=== PATIENT | male | born 1980 ===

== ENCOUNTER 2017-01-07 17:09 | Emergency (ER) | payer OTHER ==
[~2017-01-07 17:09] MED LIST: GABAPENTIN300 MG PO; NORCO1 TA2 PO; TRAMADOL HCL50 MG PO
--- NOTE | 2017-01-07 21:48 | ED CLINICAL REPORT ---
Clinical Report - Physicians/Mid Levels [facility] [address] [place] [address] 01/07/2017 17:10 Patient: LUIGI LYNN Time Seen: 2129; initial patient contact, initial documentation, patient care assumed. Arrived- By private vehicle. Historian- patient. HISTORY OF PRESENT ILLNESS Chief Complaint: FALL. Location of injuries- head. The injury occurred yesterday. Fell and landed on a concrete surface; slipped (slipped on ice). Occurred at work. The patient complains of moderate pain. The patient sustained a blow to the head. No neck pain, loss of consciousness or seizure. Not dazed. REVIEW OF SYSTEMS No numbness, dizziness, loss of vision, chest pain or difficulty breathing. No weakness, abdominal pain, laceration or vomiting. He has had a headache but no pain on weight bearing. All systems otherwise negative, except as recorded above. PAST HISTORY See nurses notes. PROBLEMS: Tinnitus. Hematuria. Hypertension. Chest Pain of GI Origin. Gastritis. Peptic Ulcer Disease. Contusion. Fall. Flank Pain. Recent Travel. Calcium on prostrate. Gastroesophageal Reflux Disease. Anxiety Reaction. Leukocytosis. Abdominal Pain. Urinary Calculi. Renal Colic. Immunizations. --17:41 Margaret Valencia R.N. Gastroenteritis [RuleOut]. --17:41 Margaret Valencia R.N. ADDITIONAL SURGERIES: Colonoscopy. Lithotripsy. Renal Stone Manipulation. Shoulder Surgery. --17:41 Margaert Valencia R.N. SOCIAL HISTORY Heavy tobacco smoker. Occasional alcohol use. No drug use. No recent travel. Is a local resident. FAMILY HISTORY No significant family medical history. ADDITIONAL NOTES The nursing notes have been reviewed with agreement regarding the chief complaint, HPI, ROS, PMH and patient medications and allergies. PHYSICAL EXAM Vital Signs: 01/07/2017 17:36 BP: 138/104. HR: 88. RR: 18. O2 saturation: 98%. Temp: 98.4 F. Pain level now: 610. Have been reviewed as abnormal and appear to be correct. Hypertensive. Heart rate normal. Respiratory rate normal. Temperature normal. Oxygen saturation normal. Appearance: Alert. Oriented X3. No acute distress. Head: Head tender. No swelling of head. Occiput: mild tenderness of the central and middle occiput. No erythema, swelling, laceration, abrasion or ecchymosis. No puncture wound, foreign body or deformity. Eyes: Pupils equal, round and reactive to light. EOM intact. ENT: No dental injury. Pharynx normal. Neck: Painless ROM. Non-tender. CVS: Heart sounds normal. Pulses normal. Respiratory: Breath sounds normal. Chest nontender. Back: No tenderness. ROM normal. Skin: Skin intact. Skin warm and dry. Normal skin color. Normal skin turgor. Extremities: Normal inspection. Pelvis stable. Extremities atraumatic. No lower extremity edema. Neuro: Oriented X 3. No motor deficit. No sensory deficit. PROGRESS AND PROCEDURES Course of Care: 21:58 01/07/17. L&I paperwork completed. Patient counseled in person regarding the patient's stable condition and diagnosis. 21:48. Differential Diagnosis: Other possible considerations: fall, head injury, fx, contusions, lacs, abrasions, sprains. Above considerations are based on history and physical exam. Differential diagnosis was discussed with patient. Disposition: Discharged home in good and improved condition (21:48). Condition: good and stable. CLINICAL IMPRESSION Fall on same level by slipping. Single contusion to the head.No hematoma or skin abrasion. INSTRUCTIONS Warnings: HEAD INJURY PRECAUTIONS: An observer must check on the patient frequently for the next 24 hours to confirm that the patient responds as expected, is not confused, has no new weakness or numbness, and has no other problems. GENERAL WARNINGS: Return or contact your physician immediately if your condition worsens or changes unexpectedly, if not improving as expected, or if other problems arise. SPECIFICALLY, return if you develop incontinence of feces (loss of bowel control) or urine (loss of bladder control). trouble breathing, chest pain, abdominal pain. Prescription Medications: Naproxen 500 mg tablets: take 1 orally every 12 hours as needed for pain. Dispense twenty (20). No refills. Follow-up: Follow up with your doctor in about three days even if well. Call for an appointment. Summary of care provided to patient. Understanding of the discharge instructions verbalized by patient. (Electronically signed by Susy Castro A.R.N.P. 01/07/2017 22:37)
--- NOTE | 2017-01-07 21:48 | ED NURSING NOTES ---
Clinical Report - Nurses [facility] [address] [place] [address] 01/07/2017 17:10 Patient: LUIGI LYNN TRIAGE Triage time 17:36. Acuity: LEVEL 4. Chief Complaint: BACK PAIN. Alert. No acute distress. MADELINE COMA SCORE: Madeline Coma Scale: 15- eyes open spontaneously (4); best verbal response- oriented x 4 (5); best motor response- obeys commands (6). --17:43 Margaret Valencia R.N. 17:36 01/07/17. BP: 138/104. HR: 88. RR: 18. O2 saturation: 98% on room air. Temp: 98.4 F (oral). Pain level now: 05/08. --17:43 Margaret Valencia R.N. Weight: 111.1 kg stated. Height/Length: 71 inches Per Patient. BMI: 34.2. --17:41 Margaret Valencia R.N. Medications Hydrocodone-Acetaminophen Oral 7.5 mg, 3x a day. TraMADol HCl Oral (Tablet 50 mg) 2 tablets, 2x a day as needed, kidney pain (stones). --17:38 Margaret Valencia R.N. Ibuprofen Oral. --17:38 Margaret Valencia R.N. Medication/allergy information source: the patient. --17:43 Margaret Valencia R.N. Allergies No Known Drug Allergy. --17:39 Margaret Valencia R.N. History Arrived by private vehicle. Historian: patient. Accompanied by family. Primary physician (Violette). This started yesterday. ( constant). Relates the location as generalized. ( seen at clinic today and sent here for possible concussion). He has had a headache. History of recent trauma- fall (slipped on ice yesterday and hit back and head on concrete). Occurred at work ([employer]). SOCIAL HX: Heavy tobacco smoker- 1 pack per day. Occasional alcohol use. No drug use. FALL RISK ASSESSMENT: Fall risk assessment completed. No fall risk identified. FUNCTIONAL ASSESSMENT: Functional assessment: no impairments noted. LEARNING NEEDS ASSESSMENT: The learning needs assessment revealed no barriers. --17:43 Margaret Valencia R.N. PROBLEMS: Tinnitus. Hematuria. Hypertension. Chest Pain of GI Origin. Gastritis. Peptic Ulcer Disease. Contusion. Fall. Flank Pain. Recent Travel. Calcium on prostrate. Gastroesophageal Reflux Disease. Anxiety Reaction. Leukocytosis. Abdominal Pain. Urinary Calculi. Renal Colic. Immunizations. --17:41 Margaret Valencia R.N. Gastroenteritis [RuleOut]. --17:41 Margaret Valencia R.N. ADDITIONAL SURGERIES: Colonoscopy. Lithotripsy. Renal Stone Manipulation. Shoulder Surgery. --17:41 Margaret Valencia R.N. Assessment GENERAL / NEURO / PSYCH: Alert. Oriented X 4. Appears in no acute distress. Patient appears calm and cooperative. RESPIRATORY: Respirations not labored. SKIN: Skin is warm and dry. --17:43 Margaret Valencia R.N. Interventions <<STRICKEN ENTRY-- ID band on patient. To treatment room. --17:43 Margaret Valencia R.N. --END STRIKE>> Correction --17:43 Margaret Valencia R.N. ID band on patient. To waiting room. --17:44 Margaret Valencia R.N. PHYSICAL ASSESSMENT GENERAL / NEURO / PSYCH: Alert. Oriented X 4. Appears in no acute distress. ( pt reports tender area on back of head.). HEENT: Occiput: tenderness. RESPIRATORY: Respirations not labored. CVS: Capillary refill less than 2 seconds. --19:59 Nadira Elise R.N. NURSING PROGRESS NOTES Head of bed elevated. Two patient identifiers checked. Call light placed in reach. Side rails up x 1. Bed placed in lowest position. Brakes of bed on. --19:58 Nadira Elise R.N. Patient ready for evaluation- chart flagged. --19:58 Nadira Elise R.N. 19:58 01/07/17. BP: 145/95. HR: 102. RR: 17. O2 saturation: 98% on room air. Pain level now: 5/10. --19:59 Nadira Elise R.N. Patient informed about reason for wait. --21:19 Violet Carson R.N. 22:11 01/07/2017 Toradol (Ketorolac Tromethamine) IM 60 mg given. Given in the right ventral gluteus. Allergies verified and confirmed 5 rights. --22:21 Nadira Elise R.N. DISPOSITION / DISCHARGE Condition at departure: stable. No learning barriers present. Discharge instructions provided and reviewed with the patient. Reviewed medication(s) side effects, precautions, dosing and course information. Prescription(s) given to the patient. Patient verbalized understanding. Written instructions provided in Nepalese. The patient was discharged home and accompanied by docent coordinator. He left the Emergency Department ambulatory and via private vehicle. Shingle Cutter driving. --22:22 Nadira Elise R.N. 22:21 01/07/17. BP: 150/92. HR: 91. RR: 15. O2 saturation: 98% on room air. Temp: deferred. Padilla-Raya pain scale: 4/10. --22:22 Nadira Elise R.N. Departure time: 22:22. --22:22 Nadira Elise R.N. Locked/Released at 01/07/2017 22:22 by Nadira Elise R.N.
--- NOTE | 2017-01-07 21:48 | ED ORDER SUMMARY ---
..... Patient: LUIGI LYNN OrderSheet [facility] VisitID: [id number] [address] [place] [address] 36y, M Registration Date/Time: 01/07/2017 ORDER SHEET Weight: 111.1 kg (stated) Allergies: No Known Drug Allergy GENERAL ORDERS: MEDICATION ORDERS: Toradol IM 60 mg (NOW) (21:40 01/07/2017 Oanh A.R.N.P.) (Ack 22:11 RCkendell R.N.) (22:21 Yves R.N.) IV FLUIDS: ORDER SHEET NOTES: [Electronically signed by Nadira Elise R.N. (22:22 01/07/2017)] [Electronically signed by Susy CastroR.N.P. (22:37 01/07/2017)] [Electronically locked/signed by Nadira Elise R.N. (22:22 01/07/2017)]
--- NOTE | 2017-01-07 21:48 | ED NURSING NOTES ---
Clinical Report - Nurses [facility] [address] [place] [address] 01/07/2017 17:10 Patient: LUIGI LYNN TRIAGE Triage time 17:36. Acuity: LEVEL 4. Chief Complaint: BACK PAIN. Alert. No acute distress. MADELINE COMA SCORE: Madeline Coma Scale: 15- eyes open spontaneously (4); best verbal response- oriented x 4 (5); best motor response- obeys commands (6). --17:43 Margaret Valencia R.N. 17:36 01/07/17. BP: 138/104. HR: 88. RR: 18. O2 saturation: 98% on room air. Temp: 98.4 F (oral). Pain level now: 05/08. --17:43 Margaret Valencia R.N. Weight: 111.1 kg stated. Height/Length: 71 inches Per Patient. BMI: 34.2. --17:41 Margaret Valencia R.N. Medications Hydrocodone-Acetaminophen Oral 7.5 mg, 3x a day. TraMADol HCl Oral (Tablet 50 mg) 2 tablets, 2x a day as needed, kidney pain (stones). --17:38 Magraret Valencia R.N. Ibuprofen Oral. --17:38 Margaret Valencia R.N. Medication/allergy information source: the patient. --17:43 Margaret Valencia R.N. Allergies No Known Drug Allergy. --17:39 Margaret Valencia R.N. History Arrived by private vehicle. Historian: patient. Accompanied by family. Primary physician (Violette). This started yesterday. ( constant). Relates the location as generalized. ( seen at clinic today and sent here for possible concussion). He has had a headache. History of recent trauma- fall (slipped on ice yesterday and hit back and head on concrete). Occurred at work ([employer]). SOCIAL HX: Heavy tobacco smoker- 1 pack per day. Occasional alcohol use. No drug use. FALL RISK ASSESSMENT: Fall risk assessment completed. No fall risk identified. FUNCTIONAL ASSESSMENT: Functional assessment: no impairments noted. LEARNING NEEDS ASSESSMENT: The learning needs assessment revealed no barriers. --17:43 Margaret Valencia R.N. PROBLEMS: Tinnitus. Hematuria. Hypertension. Chest Pain of GI Origin. Gastritis. Peptic Ulcer Disease. Contusion. Fall. Flank Pain. Recent Travel. Calcium on prostrate. Gastroesophageal Reflux Disease. Anxiety Reaction. Leukocytosis. Abdominal Pain. Urinary Calculi. Renal Colic. Immunizations. --17:41 Margaret Valencia R.N. Gastroenteritis [RuleOut]. --17:41 Margaret Valencia R.N. ADDITIONAL SURGERIES: Colonoscopy. Lithotripsy. Renal Stone Manipulation. Shoulder Surgery. --17:41 Margaret Valencia R.N. Assessment GENERAL / NEURO / PSYCH: Alert. Oriented X 4. Appears in no acute distress. Patient appears calm and cooperative. RESPIRATORY: Respirations not labored. SKIN: Skin is warm and dry. --17:43 Margaret Valencia R.N. Interventions <<STRICKEN ENTRY-- ID band on patient. To treatment room. --17:43 Margaret Valencia R.N. --END STRIKE>> Correction --17:43 Margaret Valencia R.N. ID band on patient. To waiting room. --17:44 Margaret Valencia R.N. PHYSICAL ASSESSMENT GENERAL / NEURO / PSYCH: Alert. Oriented X 4. Appears in no acute distress. ( pt reports tender area on back of head.). HEENT: Occiput: tenderness. RESPIRATORY: Respirations not labored. CVS: Capillary refill less than 2 seconds. --19:59 Nadira Elise R.N. NURSING PROGRESS NOTES Head of bed elevated. Two patient identifiers checked. Call light placed in reach. Side rails up x 1. Bed placed in lowest position. Brakes of bed on. --19:58 Nadira Elise R.N. Patient ready for evaluation- chart flagged. --19:58 Nadira Elise R.N. 19:58 01/07/17. BP: 145/95. HR: 102. RR: 17. O2 saturation: 98% on room air. Pain level now: 5/10. --19:59 Nadira Elise R.N. Patient informed about reason for wait. --21:19 Violet Carson R.N. 22:11 01/07/2017 Toradol (Ketorolac Tromethamine) IM 60 mg given. Given in the right ventral gluteus. Allergies verified and confirmed 5 rights. --22:21 Nadira Elise R.N. DISPOSITION / DISCHARGE Condition at departure: stable. No learning barriers present. Discharge instructions provided and reviewed with the patient. Reviewed medication(s) side effects, precautions, dosing and course information. Prescription(s) given to the patient. Patient verbalized understanding. Written instructions provided in Swazi. The patient was discharged home and accompanied by electric blasting cap assembler. He left the Emergency Department ambulatory and via private vehicle. Hogshead Press Operator driving. --22:22 Nadira Elise R.N. 22:21 01/07/17. BP: 150/92. HR: 91. RR: 15. O2 saturation: 98% on room air. Temp: deferred. Padilla-Raya pain scale: 4/10. --22:22 Nadira Elise R.N. Departure time: 22:22. --22:22 Nadira Elise R.N. Locked/Released at 01/07/2017 22:22 by Nadira Elise R.N.
--- NOTE | 2017-01-07 21:48 | ED ORDER SUMMARY ---
..... Patient: LUIGI LYNN OrderSheet [facility] VisitID: [id number] [address] [place] [address] 36y, M Registration Date/Time: 01/07/2017 ORDER SHEET Weight: 111.1 kg (stated) Allergies: No Known Drug Allergy GENERAL ORDERS: MEDICATION ORDERS: Toradol IM 60 mg (NOW) (21:40 01/07/2017 Oanh A.R.N.P.) (Ack 22:11 RCkendell R.N.) (22:21 Yves R.N.) IV FLUIDS: ORDER SHEET NOTES: [Electronically signed by Nadira Elise R.N. (22:22 01/07/2017)] [Electronically signed by Susy CastroR.N.P. (22:37 01/07/2017)] [Electronically locked/signed by Nadira Elise R.N. (22:22 01/07/2017)]
--- NOTE | 2017-01-07 22:37 | ED DISCHARGE INSTRUCTIONS ---
Patient: LUIGI LYNN General Instructions [facility] VisitID: [id number] [address] [place] [address] 36y, M Registration Date/Time: 01/07/2017 Fall on same level by slipping. Single contusion to the head.No hematoma or skin abrasion. INSTRUCTIONS Warnings: HEAD INJURY PRECAUTIONS: An observer must check on the patient frequently for the next 24 hours to confirm that the patient responds as expected, is not confused, has no new weakness or numbness, and has no other problems. GENERAL WARNINGS: Return or contact your physician immediately if your condition worsens or changes unexpectedly, if not improving as expected, or if other problems arise. SPECIFICALLY, return if you develop incontinence of feces (loss of bowel control) or urine (loss of bladder control). trouble breathing, chest pain, abdominal pain. Prescription Medications: Naproxen 500 mg tablets: take 1 orally every 12 hours as needed for pain. Dispense twenty (20). No refills. Follow-up: Follow up with your doctor in about three days even if well. Call for an appointment. Summary of care provided to patient. Understanding of the discharge instructions verbalized by patient. ADDITIONAL INFORMATION Mechanical Fall You have had a fall today. It appears that the cause is mechanical. That means that you slipped, tripped or lost your balance. If your fall had been due to fainting or a seizure, further tests would be required. Home Care: Rest today and resume your normal activities when you are feeling back to normal. If you were injured during the fall, follow the advice from your doctor regarding care of your injury. You may use acetaminophen (Tylenol) or ibuprofen (Motrin, Advil) to control pain, unless another pain medicine was prescribed. [NOTE: If you have chronic liver or kidney disease or ever had a stomach ulcer or GI bleeding, talk with your doctor before using these medicines.] Fall Prevention: Was there anything that caused your fall that can be fixed, removed, or replaced? Make your home safe by keeping walkways clear of objects you may trip over. Use non-slip pads under rugs. Do not walk in poorly lit areas. Do not stand on chairs or wobbly ladders. Use caution when reaching overhead or looking upward. This position can cause a loss of balance. Be sure your shoes fit properly, have non-slip bottoms and are in good condition. Be cautious when going up and down curbs, and walking on uneven sidewalks. If your balance is poor, consider using a cane or walker. Stay as active as you can. Balance, flexibility, strength, and endurance all come from exercise. They all play a role in preventing falls. Follow Up with your doctor or as advised by our staff. Get Prompt Medical Attention if any of the following occur: Repeated mechanical falls, or unexplained falls Dizziness, fainting or seizure Severe headache Chest pain or shortness of breath Palpitations (very rapid or very slow or irregular heartbeat) Blood in vomit, stools (black or red color) Weakness of an arm or leg or one side of the face Difficulty with speech or vision Scalp Contusion [No Wake-Up] A scalp contusion is a bruise with swelling and sometimes bleeding under the skin. The swelling should start to go down within two days. Although there is no sign of a serious injury at this time, symptoms may appear later. These could be a sign of a more serious problem (bruising or bleeding in the brain). Therefore, watch for the warning signs below. Home Care: During the next 24 hours someone must stay with you to check for the signs below. It is not necessary to stay awake or be awakened during the night. If you have swelling of the face or scalp, apply an ice pack (ice cubes in a plastic bag, wrapped in a towel) for 20 minutes. Do this every 1-2 hours until the swelling starts to go down. You may use acetaminophen (Tylenol) or ibuprofen (Motrin, Advil) to control pain, unless another pain medicine was prescribed. [ NOTE : If you have chronic liver or kidney disease or ever had a stomach ulcer or GI bleeding, talk with your doctor before using these medicines.] For the next 24 hours: Do not take alcohol, sedatives or medicines that make you sleepy. Do not drive or operate machinery. Avoid strenuous activities. No lifting or straining. If you have had any symptoms of a concussion today (nausea, vomiting, dizziness, confusion, headache, memory loss or if you were knocked out), do not return to sports or any activity that could result in another head injury until all symptoms are gone and you have been cleared by your doctor. A second head injury before fully recovering from the first one can lead to serious brain injury. Follow Up with your doctor if symptoms are not improving after 24 hours, or as directed. [NOTE: Any X-rays or CT scans taken will be reviewed by a radiologist. You will be notified of any new findings that may affect your care.] Get Prompt Medical Attention if any of the following occur: Repeated vomiting Severe or worsening headache or dizziness Unusual drowsiness, or unable to awaken as usual Confusion or change in behavior or speech, memory loss, blurred vision Convulsion (seizure) Increasing scalp or face swelling Redness, warmth or pus from the swollen area Fluid drainage or bleeding from the nose or ears Fever of 100.4F(38C) or higher, or as directed by your healthcare provider Head Injury, No Wake-Up (Adult) You have had a head injury. It does not appear serious at this time. Symptoms of a more serious problem (concussion, bruising, or bleeding in the brain) may appear later. Therefore, watch for the WARNING SIGNS listed below. Home Care: Your healthcare provider will tell you whether its okay to drive. If so, you can drive yourself home. For the next day or so, be careful when driving or using heavy machinery until you are sure you have no delayed symptoms. During the next 24 hours someone must stay with you to check for the signs below. It is not necessary to stay awake or be awakened during the night. If you have swelling of the face or scalp, apply an ice pack (ice cubes in a plastic bag, wrapped in a towel) for 20 minutes. Do this every 1-2 hours until the swelling starts to go down. Do not use aspirin or ibuprofen (Motrin, Advil) after a head injury.You may use acetaminophen (Tylenol)to control pain, unless another pain medicine was prescribed. [NOTE: If you have chronic liver or kidney disease or ever had a stomach ulcer or GI bleeding, talk with your doctor before using these medicines.] For the next 24 hours: Do not take alcohol, sedatives or medicines that make you sleepy. Avoid strenuous activities. No lifting or straining. If you have had any symptoms of a concussion today (nausea, vomiting, dizziness, confusion, headache, memory loss or if you were knocked out), do not return to sports or any activity that could result in another head injury until all symptoms are gone and you have been cleared by your doctor. A second head injury before fully recovering from the first one can lead to serious brain injury. Follow Up with your doctor if symptoms are not improving after 24 hours, or as directed. [NOTE: A radiologist will review any X-rays or CT scans that were taken. We will notify you of any new findings that may affect your care.] Get Prompt Medical Attention if any of the followingWARNING SIGNS occur: Repeated vomiting Severe or worsening headache or dizziness Unusual drowsiness, or unable to awaken as usual Confusion or change in behavior or speech, memory loss, blurred vision Convulsion (seizure) Increasing scalp or face swelling Redness, warmth or pus from the swollen area Fluid drainage or bleeding from the nose or ears Naproxen Sodium Oral tablet What is this medicine? NAPROXEN (na PROX en) is a non-steroidal anti-inflammatory drug (NSAID). It is used to reduce swelling and to treat pain. This medicine may be used for dental pain, headache, or painful monthly periods. It is also used for painful joint and muscular problems such as arthritis, tendinitis, bursitis, and gout. How should I use this medicine? Take this medicine by mouth with a glass of water. Follow the directions on the prescription label. Take it with food if your stomach gets upset. Try to not lie down for at least 10 minutes after you take it. Take your medicine at regular intervals. Do not take your medicine more often than directed. Long-term, continuous use may increase the risk of heart attack or stroke. A special MedGuide will be given to you by the pharmacist with each prescription and refill. Be sure to read this information carefully each time. Talk to your special events director regarding the use of this medicine in children. Special care may be needed. What side effects may I notice from receiving this medicine? Side effects that you should report to your doctor or health child care nurse as soon as possible: black or bloody stools, blood in the urine or vomit blurred vision chest pain difficulty breathing or wheezing nausea or vomiting severe stomach pain skin rash, skin redness, blistering or peeling skin, hives, or itching slurred speech or weakness on one side of the body swelling of eyelids, throat, lips unexplained weight gain or swelling unusually weak or tired yellowing of eyes or skin Side effects that usually do not require medical attention (report to your doctor or health child care nurse if they continue or are bothersome): constipation headache heartburn What may interact with this medicine? alcohol aspirin cidofovir diuretics lithium methotrexate other drugs for inflammation like ketorolac or prednisone pemetrexed probenecid warfarin What if I miss a dose? If you miss a dose, take it as soon as you can. If it is almost time for your next dose, take only that dose. Do not take double or extra doses. Where should I keep my medicine? Keep out of the reach of children. Store at room temperature between 15 and 30 degrees C (59 and 86 degrees F). Keep container tightly closed. Throw away any unused medicine after the expiration date. What should I tell my health care provider before I take this medicine? They need to know if you have any of these conditions: asthma cigarette smoker drink more than 3 alcohol containing drinks a day heart disease or circulation problems such as heart failure or leg edema (fluid retention) high blood pressure kidney disease liver disease stomach bleeding or ulcers an unusual or allergic reaction to naproxen, aspirin, other NSAIDs, other medicines, foods, dyes, or preservatives or trying to get breast-feeding What should I watch for while using this medicine? Tell your doctor or health child care nurse if your pain does not get better. Talk to your doctor before taking another medicine for pain. Do not treat yourself. This medicine does not prevent heart attack or stroke. In fact, this medicine may increase the chance of a heart attack or stroke. The chance may increase with longer use of this medicine and in people who have heart disease. If you take aspirin to prevent heart attack or stroke, talk with your doctor or health child care nurse. Do not take other medicines that contain aspirin, ibuprofen, or naproxen with this medicine. Side effects such as stomach upset, nausea, or ulcers may be more likely to occur. Many medicines available without a prescription should not be taken with this medicine. This medicine can cause ulcers and bleeding in the stomach and intestines at any time during treatment. Do not smoke cigarettes or drink alcohol. These increase irritation to your stomach and can make it more susceptible to damage from this medicine. Ulcers and bleeding can happen without warning symptoms and can cause . You may get drowsy or dizzy. Do not drive, use machinery, or do anything that needs mental alertness until you know how this medicine affects you. Do not stand or sit up quickly, especially if you are an older patient. This reduces the risk of dizzy or fainting spells. This medicine can cause you to bleed more easily. Try to avoid damage to your teeth and gums when you brush or floss your teeth. You have been given the following additional information: Fall, Mechanical Scalp Contusion, No Wake Up HEAD INJURY, No Wake-Up (Adult) Naproxen Sodium Oral tablet (Electronically signed by Susy Castro A.R.N.P. 01/07/2017 22:37)
--- NOTE | 2017-01-07 22:38 | ED MAR SUMMARY ---
..... Medication Administration Record [facility] [address] [place] [address] Patient: LUIGI LYNN Visit ID: [id number] 36y, M Weight: 111.1 kg Height/Length: 71 in BMI: 34.2 ALLERGIES: No Known Drug Allergy Given 22:11 01/07/2017 Nadira Elise R.N. Medication Administered: TORADOL [IM] (KETOROLAC TROMETHAMINE), Dose: 60 mg IM. Medication Ordered: Toradol IM 60 mg (NOW).
--- NOTE | 2017-01-07 22:38 | ED MAR SUMMARY ---
..... Medication Administration Record [facility] [address] [place] [address] Patient: LUIGI LYNN Visit ID: [id number] 36y, M Weight: 111.1 kg Height/Length: 71 in BMI: 34.2 ALLERGIES: No Known Drug Allergy Given 22:11 01/07/2017 Nadira Elise R.N. Medication Administered: TORADOL [IM] (KETOROLAC TROMETHAMINE), Dose: 60 mg IM. Medication Ordered: Toradol IM 60 mg (NOW).
--- NOTE | 2017-01-07 22:38 | ED MED RECONCILIATION SUMMARY ---
Patient: LUIGI LYNN Medication Reconciliation Report [facility] VisitID: [id number] [address] [place] [address] 36y, M Registration Date/Time: 01/07/2017 Weight: 111.1 kg Height/Length: 71 in. BMI: 34.2 ALLERGIES: No Known Drug Allergy The patient's Home Medications are listed below: THE FOLLOWING MEDICATIONS NEED TO BE RECONCILED: Hydrocodone-Acetaminophen Oral 7.5 mg, 3x a day Ibuprofen Oral TraMADol HCl Oral (50 mg) 2 tablets, 2x a day, kidney pain (stones) The source(s) of the original Home Medication information: patient The following Medications were given to the patient in the Emergency Department: Toradol [IM] IM 60 mg, administered: 01/07/2017 10:11:00 PM The following Medications were prescribed to the patient: Naproxen 500 mg tablets: take 1 orally every 12 hours as needed for pain. Dispense twenty (20). No refills. -- Susy Castro A.R.N.P.
--- NOTE | 2017-01-07 22:38 | ED MED RECONCILIATION SUMMARY ---
Patient: LUIGI LYNN Medication Reconciliation Report [facility] VisitID: [id number] [address] [place] [address] 36y, M Registration Date/Time: 01/07/2017 Weight: 111.1 kg Height/Length: 71 in. BMI: 34.2 ALLERGIES: No Known Drug Allergy The patient's Home Medications are listed below: THE FOLLOWING MEDICATIONS NEED TO BE RECONCILED: Hydrocodone-Acetaminophen Oral 7.5 mg, 3x a day Ibuprofen Oral TraMADol HCl Oral (50 mg) 2 tablets, 2x a day, kidney pain (stones) The source(s) of the original Home Medication information: patient The following Medications were given to the patient in the Emergency Department: Toradol [IM] IM 60 mg, administered: 01/07/2017 10:11:00 PM The following Medications were prescribed to the patient: Naproxen 500 mg tablets: take 1 orally every 12 hours as needed for pain. Dispense twenty (20). No refills. -- Susy Castro A.R.N.P.
== END 2017-01-07 22:19 | disposition home or self-care (01) ==
LOC: ED SRH 17:09
DX: S00.83XA Contusion of other part of head, initial encounter (principal); W00.0XXA Fall on same level due to ice and snow, initial encounter; Y93.9 Activity, unspecified; Y99.0 Civilian activity done for income or pay; Y92.89 Other specified places as the place of occurrence of the external cause; F17.210 Nicotine dependence, cigarettes, uncomplicated

== ENCOUNTER 2017-01-26 14:17 | Emergency (ER) | payer BC, OTHER ==
--- NOTE | 2017-01-26 16:41 | DIAGNOSTIC IMAGING REPORT ---
PROCEDURE: CT ABDOMEN/PELVIS W/O CONTRAST INDICATION: FLANK PAIN TECHNIQUE: Axial CT images were obtained through the abdomen and pelvis without IV contrast. Coronal and sagittal reformations were created. COMPARISON: Abdominal CT 03/24/2016 FINDINGS: There is a 5 mm stone at the right ureteral vesicle junction. There is dilatation of the entire collecting system on the right. Clear lung bases. Normal size heart. The unenhanced appearance of the liver, gallbladder, adrenal glands, kidneys, pancreas and spleen is normal. The stomach, upper bowel loops, and mesentery appears normal. Intact anterior abdominal wall. No free fluid, or inflammation. The unenhanced appearance of the prostate gland, seminal vesicles, urinary bladder, pelvic vessels, and pelvic bowel loops is normal. Normal appendix. IMPRESSION: 1. There is a 5 mm stone at the right ureteral vesicle junction. There is dilatation of the entire collecting system down to the level of the stone. 2. Results were called Dr. Stone at 04:[address] scans at this facility use dose modulation, iterative reconstruction, and/or weight-based dosing when appropriate to reduce radiation dose to as low as reasonably achievable.
--- NOTE | 2017-01-26 17:42 | ED ORDER SUMMARY ---
..... Patient: LUIGI LYNN OrderSheet [facility] VisitID: [id number] [place] [address] 36y, M Registration Date/Time: 01/26/2017 ORDER SHEET Weight: 108.8 kg (stated) Allergies: No Known Drug Allergy GENERAL ORDERS: CBC w Diff Urgent (14:59 01/26/2017 Haja Dueñas) (Ack 15:01 Liz) (15:13 Karolyn R.N.) CMP Urgent (14:59 01/26/2017 Haja Dueñas) (Ack 15:01 Liz) (15:13 Karolyn Miller.N.) CT Abd/Pel wo Cont (Right) Urgent (15:38 01/26/2017 Haja Dueñas) (Ack 15:39 Liz) (16:14 Liz) UA-Culture if indicated Urgent (16:01 01/26/2017 Haja Dueñas) (Ack 16:02 Liz) (20:55 Sandra R.N.) MEDICATION ORDERS: Flomax PO 0.4 mg (Do not crush or chew, NOW) (17:04 01/26/2017 Haja Dueñas) (Ack 17:06 Sandra R.NClarke) (17:10 Sharonda R.N.) IV FLUIDS: Toradol IV 30 mg (NOW) (14:58 01/26/2017 Haja Dueñas) (15:14 Karolyn BustosN.) Zofran IV 4 mg (NOW) (14:59 01/26/2017 Haja Dueñas) (15:14 Karolyn R.N.) IV NS : initial bolus none -, then 1000 mL/hr for X1 (NOW) (14:59 01/26/2017 Haja Dueñas) (15:14 Karolyn BustosN.) Morphine IV 4 mg (HIGH ALERT MEDICATION, NOW) (15:37 01/26/2017 Haja Dueñas) (15:56 Sandra R.N.) Morphine IV 4 mg (HIGH ALERT MEDICATION, NOW) (17:04 01/26/2017 Haja Dueñas) (Ack 17:06 Sandra R.NClarke) (17:13 Sharonda R.NlCarke) ORDER SHEET NOTES: [Electronically signed by Sara Abraham R.N. (20:58 01/26/2017)] [Electronically signed by Elder Stone Dr. (22:46 01/26/2017)] [Electronically locked/signed by Sara Abraham R.N. (20:58 01/26/2017)]
--- NOTE | 2017-01-26 17:42 | ED ORDER SUMMARY ---
..... Patient: LUIGI LYNN OrderSheet [facility] VisitID: [id number] [place] [address] 36y, M Registration Date/Time: 01/26/2017 ORDER SHEET Weight: 108.8 kg (stated) Allergies: No Known Drug Allergy GENERAL ORDERS: CBC w Diff Urgent (14:59 01/26/2017 Haja Dueñas) (Ack 15:01 Liz) (15:13 Karolyn R.N.) CMP Urgent (14:59 01/26/2017 Haja Dueñas) (Ack 15:01 Liz) (15:13 Karolyn Miller.N.) CT Abd/Pel wo Cont (Right) Urgent (15:38 01/26/2017 Haja Dueñas) (Ack 15:39 Liz) (16:14 Liz) UA-Culture if indicated Urgent (16:01 01/26/2017 Haja Dueñas) (Ack 16:02 Liz) (20:55 Sandra R.N.) MEDICATION ORDERS: Flomax PO 0.4 mg (Do not crush or chew, NOW) (17:04 01/26/2017 Haja Dueñas) (Ack 17:06 Sandra R.NClarke) (17:10 Sharonda R.N.) IV FLUIDS: Toradol IV 30 mg (NOW) (14:58 01/26/2017 Haja Dueñas) (15:14 Karolyn BustosN.) Zofran IV 4 mg (NOW) (14:59 01/26/2017 Haja Dueñas) (15:14 Karolyn R.N.) IV NS : initial bolus none -, then 1000 mL/hr for X1 (NOW) (14:59 01/26/2017 Haja Dueñas) (15:14 Karolyn BustosN.) Morphine IV 4 mg (HIGH ALERT MEDICATION, NOW) (15:37 01/26/2017 Haja Dueñas) (15:56 Sandra R.N.) Morphine IV 4 mg (HIGH ALERT MEDICATION, NOW) (17:04 01/26/2017 Haja Dueñas) (Ack 17:06 Sandra R.NClarke) (17:13 Sharonda R.NClarke) ORDER SHEET NOTES: [Electronically signed by Sara Abraham R.N. (20:58 01/26/2017)] [Electronically signed by Elder Stone Dr. (22:46 01/26/2017)] [Electronically locked/signed by Sara Abraham R.N. (20:58 01/26/2017)]
--- NOTE | 2017-01-26 17:42 | ED CLINICAL REPORT ---
Clinical Report - Physicians/Mid Levels Formerly [facility] [address] [place] [place] [address] 01/26/2017 14:17 Patient: LUIGI LYNN Time Seen: 15:00; initial patient contact. Arrived- By private vehicle. Historian- patient. HISTORY OF PRESENT ILLNESS Chief Complaint: FLANK PAIN. At its maximum, severity described as moderate. When seen in the E.D., severity described as moderate. Modifying factors. Not worsened by anything. Not relieved by anything. It is described as sharp and cramping and it is described as located in the right flank and the right abdomen and right pelvis and radiating to the groin. The patient has had nausea and vomiting. No diarrhea. Similar symptoms previously: Several times. Recent medical care: Not recently seen/assessed. REVIEW OF SYSTEMS No difficulty with urination, pain with urination, urinary frequency or fever. He has had chills. All systems otherwise negative, except as recorded above. PAST HISTORY Hematuria. Hypertension. Chest Pain of GI Origin. Gastritis. Peptic Ulcer Disease. Contusion. Fall. Flank Pain. Gastroesophageal Reflux Disease. Anxiety Reaction. Leukocytosis. Abdominal Pain. Urinary Calculi. Renal Colic. SURGERIES: Colonoscopy. Lithotripsy. Renal Stone Manipulation. Shoulder Surgery. -. SOCIAL HISTORY Current every day smoker. No alcohol use or drug use. ADDITIONAL NOTES The nursing notes have been reviewed with agreement regarding the chief complaint, PMH and patient medications and allergies. PHYSICAL EXAM Vital Signs: 01/26/2017 14:51 BP: 153/96. HR: 84. RR: 22. O2 saturation: 98%. Temp: 97.7 F. Pain level now: 8/10. Have been reviewed. Hypertensive. Heart rate normal. Tachypneic. Temperature normal. Oxygen saturation normal. Appearance: Alert. Oriented X3. Appears to be in pain. Eyes: Eyes normal inspection. ENT: Dry mucous membranes present. CVS: Normal heart rate and rhythm. Heart sounds normal. Respiratory: No respiratory distress. Breath sounds normal. Abdomen: Soft. Moderate tenderness in the right side of the abdomen with guarding present. No rebound tenderness or Mccullough's, obturator or psoas sign present. Bowel sounds normal. Back: Moderate CVA tenderness on the right. Skin: Skin warm and dry. Normal skin color. Extremities: No lower extremity edema. Neuro: Oriented X 3. LABS, X-RAYS, AND EKG Abdominal CT: 1. There is a 5 mm stone at the right ureteral vesicle junction. There is dilatation of the entire collecting system down to the level of the stone. Study type: renal stone evaluation. Abdominal CT performed without contrast. The study was independently viewed by me, interpreted by the radiologist and discussed with the radiologist. Prior studies were not available for comparison. Laboratory Tests: CBC w Diff: (DAVID: 01/26/2017 15:10) ( MsgRcvd 01/26/2017 15:19) Final results Test Result Flag Units (Reference) WHITE BLOOD COUNT 12.7 H K/uL (4.5-11.5) RED BLOOD COUNT 5.20 M/uL (4.50-5.90) HEMOGLOBIN 15.7 gm/dL (13.5-17.5) HEMATOCRIT 46.8 % (41.0-53.0) MEAN CELL VOLUME 90 fL (80-100) MEAN CORPUSCULAR HGB 30 pg (26-34) MEAN CORPUSCULAR HGB CONC 34 g/dL (31-37) RED CELL DISTRIBUTION WIDTH 13.9 % (11.6-14.8) PLATELET COUNT 205 K/uL (150-400) NEUTROPHIL % 64.6 % (50-75) LYMPH % 25.9 % (25-40) MONO % 6.7 % (3-14) EOSINOPHIL % 2.5 % (0-4) BASOPHIL % 0.3 % (0-2) CMP: (DAVID: 01/26/2017 15:10) ( MsgRcvd 01/26/2017 15:33) Final results Test Result Flag Units (Reference) GLUCOSE 88 mg/dL (70-110) BUN 13 mg/dL (7-18) CREATININE 0.8 mg/dL (0.6-1.3) Estimated GFR >60 mL/min Estimated GFR- >60 mL/min Note: Persistent reduction over 3 months in eGFR<60 mL/min/1.73 m2 defines CKD. Patients with eGFR values>=60 mL/min/1.73 m2 may also have CKD if evidence ofpersistent proteinuria. Additional information may be foundat www.kidney.org. SODIUM 141 mmol/L (136-145) POTASSIUM 3.6 mmol/L (3.5-5.1) CHLORIDE 106 mmol/L (98-107) CARBON DIOXIDE 25 mmol/L (21-32) CALCIUM 8.5 mg/dL (8.5-10.1) TOTAL PROTEIN 7.6 g/dL (6.4-8.2) ALBUMIN 3.7 g/dL (3.3-5.0) BILIRUBIN, TOTAL 0.3 mg/dL (0.0-1.0) ALKALINE PHOSPHATASE 133 H U/L (46-116) AST (SGOT) 24 U/L (15-37) ALT (SGPT) 64 U/L (12-78) . PROGRESS AND PROCEDURES Disposition: Discharged home in good and improved condition. Condition: good. CLINICAL IMPRESSION Ureterolithiasis (single stone) in the right ureter with renal colic and hydronephrosis. No acute pyelonephritis, urinary tract infection or hematuria. INSTRUCTIONS Your Current Medications: CONTINUE TAKING THE FOLLOWING MEDICATIONS: Hydrocodone-Acetaminophen Oral : 7.5 mg 3x a day. Ibuprofen Oral. TraMADol HCl Oral : Tablet 50 mg, 2 tablets 2x a day, prn, kidney pain (stones). Prescription Medications: Hydrocodone/APAP 5mg / 325mg: take 1-2 orally every 6 hours as needed for pain. Dispense twenty-five (25). No refill. Zofran (orally disintegrating tablets) 4 mg: take 1 orally every 6 hours as needed for nausea and vomiting. Dispense ten (10). Substitution is permissible. Flomax 0.4 mg: take 1 orally every 24 hours. Dispense fifteen (15). No refills. Substitution is permissible. Follow-up: Follow up with your doctor in about two days. Call for an appointment. Screening today revealed the patient's blood pressure to be in the hypertensive range. The patient should follow up with a primary care provider for blood pressure management. (Electronically signed by Elder Stone Dr. 01/26/2017 22:46)
--- NOTE | 2017-01-26 17:42 | ED NURSING NOTES ---
Clinical Report - Nurses [place] [address] [place] [address] 01/26/2017 14:17 Patient: LUIGI LYNN TRIAGE Triage time 14:51. Acuity: LEVEL 3. Chief Complaint: ABDOMINAL PAIN, NAUSEA and VOMITING and (right flank pain). Alert. No acute distress. SEPSIS SCREEN: Sepsis Screen. Negative (no infection suspected/documented). COTY COMA SCORE: [place] Coma Scale: 15- eyes open spontaneously (4); best verbal response- oriented x 4 (5); best motor response- obeys commands (6). --14:56 Betsy Franks R.N. 14:51 01/26/17. BP: 153/96. HR: 84. RR: 22. O2 saturation: 98%. Temp: 97.7 F. Pain level now: 07/08. --14:56 Betsy Franks R.N. Weight: 108.8 kg stated. Height/Length: 71 inches Per Patient. BMI: 33.5. --14:55 Betsy Franks R.N. Medications Hydrocodone-Acetaminophen Oral 7.5 mg, 3x a day. Ibuprofen Oral. TraMADol HCl Oral (Tablet 50 mg) 2 tablets, 2x a day as needed, kidney pain (stones). --14:55 Betsy Franks R.N. Allergies No Known Drug Allergy. --14:55 Betsy Franks R.N. History Arrived by private vehicle. Historian: patient. Accompanied by family. Primary physician (Machelle Robles). This started last night. Onset. ("hit hard at 11 today"). ( Pt. states he has a history of kidney stones and he thinks he is passing some now.). Treatment LEGAL SUPPORT MANAGER: (Narco 7.5mg: last dose 1200). PAST MEDICAL HX: Immunizations: up-to-date. SOCIAL HX: Heavy tobacco smoker (cigarette)- 1 pack per day. No alcohol use or drug use. No recent travel. No known contact with a sick individual. ABUSE ASSESSMENT: Abuse assessment: The patient was asked "Do you feel safe in your home?" and "Has anyone hurt you or threatened to hurt you?". No report of abuse. SELF HARM ASSESSMENT: A self harm assessment was performed. The patient answered "no" to the question "Do you have thoughts of harming or killing yourself?" and "Have you recently had thoughts about harming or killing others?". NUTRITIONAL RISK ASSESSMENT: The nutritional risk assessment revealed no deficiencies. FUNCTIONAL ASSESSMENT: Functional assessment: no impairments noted. LEARNING NEEDS ASSESSMENT: The learning needs assessment revealed no barriers. --14:56 Betsy Franks R.N. PROBLEMS: Hematuria. Hypertension. Chest Pain of GI Origin. Gastritis. Peptic Ulcer Disease. Contusion. Fall. Flank Pain. Gastroesophageal Reflux Disease. Anxiety Reaction. Leukocytosis. Abdominal Pain. Urinary Calculi. Renal Colic. --14:55 Betsy Franks R.N. ADDITIONAL SURGERIES: Colonoscopy. Lithotripsy. Renal Stone Manipulation. Shoulder Surgery. --14:55 Betsy Franks R.N. Interventions ID band on patient. Ambulatory. --14:56 Betsy Franks R.N. PHYSICAL ASSESSMENT Ambulatory to room. GENERAL / NEURO / PSYCH: Alert. Appears in no acute distress. HEENT: Mucous membranes are pink. RESPIRATORY: Respirations not labored. CVS: Capillary refill less than 2 seconds. GI / : Abdomen soft. Abdominal tenderness in the right lower quadrant. SKIN: Skin is warm and dry. --14:56 Betsy Franks R.N. NURSING PROGRESS NOTES Head of bed elevated. Two patient identifiers checked. Call light placed in reach. Patient ready for evaluation- chart flagged. --14:57 Betsy Franks R.N. 15:09 01/26/2017 Site #1 started via IV in the left antecubital space with an 20g angiocath, with aseptic technique and good blood return; one attempt. Blood drawn: rainbow set. Labeled in the presence of the patient and sent to the lab. Saline lock flushed with 10 mL saline. --15:13 Betsy Franks R.N. 15:10 01/26/2017 Started bag #1 1000 mL IV Fluids IV NS (Saline); at 1000 mL/hr over 1 hour(s) via site #1 via IV pump. Allergies verified and confirmed 5 rights. IV patency established. IV site checked: no pain, redness, or swelling. IV flushed thoroughly pre- and post-medication administration. --15:14 Betsy Franks R.N. 15:11 01/26/2017 Toradol IVP 30 mg given over 2 minute(s) via site #1. Allergies verified and confirmed 5 rights. IV patency established. IV site checked: no pain, redness, or swelling. IV flushed thoroughly pre- and post-medication administration. --15:14 Betsy Farnks R.N. 15:14 01/26/2017 Zofran (Ondansetron HCl) IVP 4 mg given over 1 minute(s) via site #1. Allergies verified and confirmed 5 rights. IV patency established. IV site checked: no pain, redness, or swelling. IV flushed thoroughly pre- and post-medication administration. --15:14 Betsy Franks R.N. Patient ID band checked for patient name, birthdate and medical record number: patient confirmed. Instructions provided to collect clean catch urine and patient verbalized understanding. Clean catch urine collected with return of yellow-colored clear urine; sample sent to lab for urinalysis. Specimen labeled in the presence of the patient. --15:14 Betsy Franks R.N. 15:56 01/26/2017 Morphine IVP 4 mg given over 1 minute(s) via site #1. Allergies verified, confirmed 5 rights and sedative warning given to the patient. IV patency established. IV site checked: no pain, redness, or swelling. IV flushed thoroughly pre- and post-medication administration. IVP given by RN. --15:56 Sara Abraham R.N. Care transferred and report received (LINDA Meyer). --15:57 Sara Abraham R.N. ( 06/07 pain, getting better.). --15:57 Sara Abraham R.N. Patient returned from CT by stretcher with [place]. --16:14 Sara Abraham R.N. 17:10 01/26/2017 Flomax (Tamsulosin HCl) PO Capsules 0.4 mg given. --17:10 Karey Brunner R.N. 17:13 01/26/2017 Morphine IVP 4 mg given over 2 minute(s) via site #1. --17:13 Karey Brunner R.N. 17:14 01/26/2017 Morphine IVP Response: symptoms are the same. The patient feels the same. --17:14 Karey Brunner R.N. 17:14 01/26/2017 IV Fluids IV NS Discontinued: bag #1 completed. Total amount infused: 1000 mL. IV patency established. IV site checked: no pain, redness, or swelling. IV flushed thoroughly. --17:14 Karey Brunner R.N. 17:50 01/26/2017 Site #1 removed upon discharge. Catheter intact. Bandaid applied. --20:56 Sara Abraham R.N. DISPOSITION / DISCHARGE 17:50. Condition at departure: improved. No learning barriers present. Reviewed medication(s) side effects, precautions, dosing and course information. Prescription(s) given to the patient. Patient verbalized understanding. Written instructions provided in Singaporean. The patient was discharged home and accompanied by veterinary pathologist. He left the Emergency Department ambulatory and via private vehicle. Director Of Dance driving. Medication list reviewed and validated. --20:58 Sara Abraham R.N. 17:50 01/26/17. BP: 136/87. HR: 79. RR: 20. O2 saturation: 98%. Temp: deferred. Pain level now: 01/08. 16:06 01/26/17. BP: 146/74. HR: 78. RR: 20. O2 saturation: 99%. Pain level now: 06/07. 14:51 01/26/17. BP: 153/96. HR: 84. RR: 22. O2 saturation: 98%. Temp: 97.7 F. Pain level now: 07/08. --20:58 Sara Abraham R.N. Locked/Released at 01/26/2017 20:58 by Sara Abraham R.N.
--- NOTE | 2017-01-26 17:42 | ED NURSING NOTES ---
Clinical Report - Nurses [place] [place] [address] 01/26/2017 14:17 Patient: LUIGI LYNN TRIAGE Triage time 14:51. Acuity: LEVEL 3. Chief Complaint: ABDOMINAL PAIN, NAUSEA and VOMITING and (right flank pain). Alert. No acute distress. SEPSIS SCREEN: Sepsis Screen. Negative (no infection suspected/documented). COTY COMA SCORE: [place] Coma Scale: 15- eyes open spontaneously (4); best verbal response- oriented x 4 (5); best motor response- obeys commands (6). --14:56 Betsy Franks R.N. 14:51 01/26/17. BP: 153/96. HR: 84. RR: 22. O2 saturation: 98%. Temp: 97.7 F. Pain level now: 07/08. --14:56 Betsy Franks R.N. Weight: 108.8 kg stated. Height/Length: 71 inches Per Patient. BMI: 33.5. --14:55 Betsy Franks R.N. Medications Hydrocodone-Acetaminophen Oral 7.5 mg, 3x a day. Ibuprofen Oral. TraMADol HCl Oral (Tablet 50 mg) 2 tablets, 2x a day as needed, kidney pain (stones). --14:55 Betsy Franks R.N. Allergies No Known Drug Allergy. --14:55 Betsy Franks R.N. History Arrived by private vehicle. Historian: patient. Accompanied by family. Primary physician (Machelle Robles). This started last night. Onset. ("hit hard at 11 today"). ( Pt. states he has a history of kidney stones and he thinks he is passing some now.). Treatment PROJECT COORDINATOR RN: (Narco 7.5mg: last dose 1200). PAST MEDICAL HX: Immunizations: up-to-date. SOCIAL HX: Heavy tobacco smoker (cigarette)- 1 pack per day. No alcohol use or drug use. No recent travel. No known contact with a sick individual. ABUSE ASSESSMENT: Abuse assessment: The patient was asked "Do you feel safe in your home?" and "Has anyone hurt you or threatened to hurt you?". No report of abuse. SELF HARM ASSESSMENT: A self harm assessment was performed. The patient answered "no" to the question "Do you have thoughts of harming or killing yourself?" and "Have you recently had thoughts about harming or killing others?". NUTRITIONAL RISK ASSESSMENT: The nutritional risk assessment revealed no deficiencies. FUNCTIONAL ASSESSMENT: Functional assessment: no impairments noted. LEARNING NEEDS ASSESSMENT: The learning needs assessment revealed no barriers. --14:56 Betsy Franks R.N. PROBLEMS: Hematuria. Hypertension. Chest Pain of GI Origin. Gastritis. Peptic Ulcer Disease. Contusion. Fall. Flank Pain. Gastroesophageal Reflux Disease. Anxiety Reaction. Leukocytosis. Abdominal Pain. Urinary Calculi. Renal Colic. --14:55 Betsy Franks R.N. ADDITIONAL SURGERIES: Colonoscopy. Lithotripsy. Renal Stone Manipulation. Shoulder Surgery. --14:55 Betsy Franks R.N. Interventions ID band on patient. Ambulatory. --14:56 Betsy Franks R.N. PHYSICAL ASSESSMENT Ambulatory to room. GENERAL / NEURO / PSYCH: Alert. Appears in no acute distress. HEENT: Mucous membranes are pink. RESPIRATORY: Respirations not labored. CVS: Capillary refill less than 2 seconds. GI / : Abdomen soft. Abdominal tenderness in the right lower quadrant. SKIN: Skin is warm and dry. --14:56 Betsy Franks R.N. NURSING PROGRESS NOTES Head of bed elevated. Two patient identifiers checked. Call light placed in reach. Patient ready for evaluation- chart flagged. --14:57 Betsy Franks R.N. 15:09 01/26/2017 Site #1 started via IV in the left antecubital space with an 20g angiocath, with aseptic technique and good blood return; one attempt. Blood drawn: rainbow set. Labeled in the presence of the patient and sent to the lab. Saline lock flushed with 10 mL saline. --15:13 Betsy Franks R.N. 15:10 01/26/2017 Started bag #1 1000 mL IV Fluids IV NS (Saline); at 1000 mL/hr over 1 hour(s) via site #1 via IV pump. Allergies verified and confirmed 5 rights. IV patency established. IV site checked: no pain, redness, or swelling. IV flushed thoroughly pre- and post-medication administration. --15:14 Betsy Franks R.N. 15:11 01/26/2017 Toradol IVP 30 mg given over 2 minute(s) via site #1. Allergies verified and confirmed 5 rights. IV patency established. IV site checked: no pain, redness, or swelling. IV flushed thoroughly pre- and post-medication administration. --15:14 Betsy Franks R.N. 15:14 01/26/2017 Zofran (Ondansetron HCl) IVP 4 mg given over 1 minute(s) via site #1. Allergies verified and confirmed 5 rights. IV patency established. IV site checked: no pain, redness, or swelling. IV flushed thoroughly pre- and post-medication administration. --15:14 Betsy Franks R.N. Patient ID band checked for patient name, birthdate and medical record number: patient confirmed. Instructions provided to collect clean catch urine and patient verbalized understanding. Clean catch urine collected with return of yellow-colored clear urine; sample sent to lab for urinalysis. Specimen labeled in the presence of the patient. --15:14 Betsy Franks R.N. 15:56 01/26/2017 Morphine IVP 4 mg given over 1 minute(s) via site #1. Allergies verified, confirmed 5 rights and sedative warning given to the patient. IV patency established. IV site checked: no pain, redness, or swelling. IV flushed thoroughly pre- and post-medication administration. IVP given by RN. --15:56 Sara Abraham R.N. Care transferred and report received (LINDA Meyer). --15:57 Sara Abraham R.N. ( 06/07 pain, getting better.). --15:57 Sara Abraham R.N. Patient returned from CT by stretcher with [employer]. --16:14 Sara Abraham R.N. 17:10 01/26/2017 Flomax (Tamsulosin HCl) PO Capsules 0.4 mg given. --17:10 Karey Brunner R.N. 17:13 01/26/2017 Morphine IVP 4 mg given over 2 minute(s) via site #1. --17:13 Karey Brunner R.N. 17:14 01/26/2017 Morphine IVP Response: symptoms are the same. The patient feels the same. --17:14 Karey Brunner R.N. 17:14 01/26/2017 IV Fluids IV NS Discontinued: bag #1 completed. Total amount infused: 1000 mL. IV patency established. IV site checked: no pain, redness, or swelling. IV flushed thoroughly. --17:14 Karey Brunner R.N. 17:50 01/26/2017 Site #1 removed upon discharge. Catheter intact. Bandaid applied. --20:56 Sara Abraham R.N. DISPOSITION / DISCHARGE 17:50. Condition at departure: improved. No learning barriers present. Reviewed medication(s) side effects, precautions, dosing and course information. Prescription(s) given to the patient. Patient verbalized understanding. Written instructions provided in Ukrainian. The patient was discharged home and accompanied by cytology laboratory manager. He left the Emergency Department ambulatory and via private vehicle. Engineering Program Analyst driving. Medication list reviewed and validated. --20:58 Sara Abraham R.N. 17:50 01/26/17. BP: 136/87. HR: 79. RR: 20. O2 saturation: 98%. Temp: deferred. Pain level now: 01/08. 16:06 01/26/17. BP: 146/74. HR: 78. RR: 20. O2 saturation: 99%. Pain level now: 06/07. 14:51 01/26/17. BP: 153/96. HR: 84. RR: 22. O2 saturation: 98%. Temp: 97.7 F. Pain level now: 07/08. --20:58 Sara Abraham R.N. Locked/Released at 01/26/2017 20:58 by Sara Abraham R.N.
--- NOTE | 2017-01-26 22:46 | ED MAR SUMMARY ---
..... Medication Administration Record [facility] [address] [place] [place] [address] Patient: LUIGI LYNN Visit ID: [id number] 36y, M Weight: 108.8 kg Height/Length: 71 in BMI: 33.5 ALLERGIES: No Known Drug Allergy Start 15:10 01/26/2017 Betsy Franks R.N., Stop 17:14 01/26/2017 Karey Brunner R.N. Medication Administered: IV NS (SALINE), Dose: IV Fluids over 1 hour(s), Rate: 1000 mL/hr, Dispensed: 1000 mL bag, Site: #1 left AC. Medication Ordered: IV NS : initial bolus none -, then 1000 mL/hr for X1 (NOW). Given 15:11 01/26/2017 Betsy Franks R.N. Medication Administered: TORADOL [IVP], Dose: 30 mg IVP over 2 minute(s), Site: #1 left AC. Medication Ordered: Toradol IV 30 mg (NOW). Given 15:14 01/26/2017 Betsy Franks R.N. Medication Administered: ZOFRAN [IVP] (ONDANSETRON HCL), Dose: 4 mg IVP over 1 minute(s), Site: #1 left AC. Medication Ordered: Zofran IV 4 mg (NOW). Given 15:56 01/26/2017 Sara Abraham R.N. Medication Administered: MORPHINE [IVP], Dose: 4 mg IVP over 1 minute(s), Site: #1 left AC. Medication Ordered: Morphine IV 4 mg (HIGH ALERT MEDICATION, NOW). Given 17:10 01/26/2017 Karey Brunner R.N. Medication Administered: FLOMAX [PO] (TAMSULOSIN HCL), Dose: 0.4 mg Capsules PO. Medication Ordered: Flomax PO 0.4 mg (Do not crush or chew, NOW). Given 17:13 01/26/2017 Karey Brunner R.N. Medication Administered: MORPHINE [IVP], Dose: 4 mg IVP over 2 minute(s), Site: #1 left AC. Medication Ordered: Morphine IV 4 mg (HIGH ALERT MEDICATION, NOW).
--- NOTE | 2017-01-26 22:46 | ED DISCHARGE INSTRUCTIONS ---
Patient: LUIGI LYNN General Instructions [facility] VisitID: [id number] [place] [address] 36y, M Registration Date/Time: 01/26/2017 Ureterolithiasis (single stone) in the right ureter with renal colic and hydronephrosis. No acute pyelonephritis, urinary tract infection or hematuria. INSTRUCTIONS Your Current Medications: CONTINUE TAKING THE FOLLOWING MEDICATIONS: Hydrocodone-Acetaminophen Oral : 7.5 mg 3x a day. Ibuprofen Oral. TraMADol HCl Oral : Tablet 50 mg, 2 tablets 2x a day, prn, kidney pain (stones). Prescription Medications: Hydrocodone/APAP 5mg / 325mg: take 1-2 orally every 6 hours as needed for pain. Dispense twenty-five (25). No refill. Zofran (orally disintegrating tablets) 4 mg: take 1 orally every 6 hours as needed for nausea and vomiting. Dispense ten (10). Substitution is permissible. Flomax 0.4 mg: take 1 orally every 24 hours. Dispense fifteen (15). No refills. Substitution is permissible. Follow-up: Follow up with your doctor in about two days. Call for an appointment. Screening today revealed the patient's blood pressure to be in the hypertensive range. The patient should follow up with a primary care provider for blood pressure management. ADDITIONAL INFORMATION Kidney Stone (W/ Colic) The sharp cramping pain and nausea/vomiting that you have is due to a small stone which has formed in the kidney and is now passing down a narrow tube (ureter) on its way to your bladder. Once it reaches your bladder, the pain will stop. The stone may pass in your urine stream in one piece. [The size may be 1/16" to 1/4" (1-6mm)]. Or, the stone may also break up into tacho fragments which you may not even notice. Once you have had a kidney stone, you are at risk for developing another one in the future. Home Care: Drink plenty of fluids (at least 8 to 10 glasses of water a day). Most stones will pass on their own, but may take from a few hours to a few days. Sometimes the stone is too large to pass by itself and special methods will have to be used to remove the stone. Each time you urinate, do so in a jar. Pour the urine from the jar through the strainer and into the toilet. Continue doing this until 24 hours after your pain stops. By then, if there was a kidney stone, it should pass from your bladder. Some stones dissolve into sand-like particles and pass right through the strainer. In that case, you wont ever see a stone. Save any stone that you find in the strainer and bring it to your doctor for analysis. It may be possible to prevent certain types of stones from forming. Therefore, it is important to know what kind of stone you have. Try to stay as active as possible since this will help the stone pass. Do not stay in bed unless your pain prevents you from getting up. You may notice a red, pink or brown color to your urine. This is normal while passing a kidney stone. Follow Up with your doctor or return to this facility if the pain lasts more than 48 hours. Get Prompt Medical Attention if any of the following occur: Pain that is not controlled by the medicine given Repeated vomiting or unable to keep down fluids Weakness, dizziness or fainting Fever of 100.4F (38C) or higher, or as directed by your healthcare provider Passage of solid red or brown urine (can't see through it) or urine with lots of blood clots Unable to pass urine for 8 hours and increasing bladder pressure Hydrocodone Bitartrate, Acetaminophen Oral tablet What is this medicine? ACETAMINOPHEN; HYDROCODONE (a set a AMY shanel fen; david droe KOE done) is a pain reliever. It is used to treat mild to moderate pain. How should I use this medicine? Take this medicine by mouth. Swallow it with a full glass of water. Follow the directions on the prescription label. If the medicine upsets your stomach, take the medicine with food or milk. Do not take more than you are told to take. Talk to your residential sales associate regarding the use of this medicine in children. This medicine is not approved for use in children. What side effects may I notice from receiving this medicine? Side effects that you should report to your doctor or health child care nurse as soon as possible: allergic reactions like skin rash, itching or hives, swelling of the face, lips, or tongue breathing problems confusion feeling faint or lightheaded, falls stomach pain yellowing of the eyes or skin Side effects that usually do not require medical attention (report to your doctor or health child care nurse if they continue or are bothersome): nausea, vomiting stomach upset What may interact with this medicine? alcohol antihistamines isoniazid medicines for depression, anxiety, or psychotic disturbances medicines for sleep muscle relaxants naltrexone narcotic medicines (opiates) for pain phenobarbital ritonavir tramadol What if I miss a dose? If you miss a dose, take it as soon as you can. If it is almost time for your next dose, take only that dose. Do not take double or extra doses. Where should I keep my medicine? Keep out of the reach of children. This medicine can be abused. Keep your medicine in a safe place to protect it from theft. Do not share this medicine with anyone. Selling or giving away this medicine is dangerous and against the law. Store at room temperature between 15 and 30 degrees C (59 and 86 degrees F). Protect from light. Keep container tightly closed. Throw away any unused medicine after the expiration date. Discard unused medicine and used packaging carefully. Pets and children can be harmed if they find used or lost packages. What should I tell my health care provider before I take this medicine? They need to know if you have any of these conditions: brain tumor Crohn's disease, inflammatory bowel disease, or ulcerative colitis drink more than 3 alcohol-containing drinks per day drug abuse or addiction head injury heart or circulation problems kidney disease or problems going to the bathroom liver disease lung disease, asthma, or breathing problems an unusual or allergic reaction to acetaminophen, hydrocodone, other opioid analgesics, other medicines, foods, dyes, or preservatives or trying to get breast-feeding What should I watch for while using this medicine? Tell your doctor or health child care nurse if your pain does not go away, if it gets worse, or if you have new or a different type of pain. You may develop tolerance to the medicine. Tolerance means that you will need a higher dose of the medicine for pain relief. Tolerance is normal and is expected if you take the medicine for a long time. Do not suddenly stop taking your medicine because you may develop a severe reaction. Your body becomes used to the medicine. This does NOT mean you are addicted. Addiction is a behavior related to getting and using a drug for a non-medical reason. If you have pain, you have a medical reason to take pain medicine. Your doctor will tell you how much medicine to take. If your doctor wants you to stop the medicine, the dose will be slowly lowered over time to avoid any side effects. You may get drowsy or dizzy when you first start taking the medicine or change doses. Do not drive, use machinery, or do anything that may be dangerous until you know how the medicine affects you. Stand or sit up slowly. There are different types of narcotic medicines (opiates) for pain. If you take more than one type at the same time, you may have more side effects. Give your health care provider a list of all medicines you use. Your doctor will tell you how much medicine to take. Do not take more medicine than directed. Call emergency for help if you have problems breathing. The medicine will cause constipation. Try to have a bowel movement at least every 2 to 3 days. If you do not have a bowel movement for 3 days, call your doctor or health child care nurse. Too much acetaminophen can be very dangerous. Do not take Tylenol (acetaminophen) or medicines that contain acetaminophen with this medicine. Many non-prescription medicines contain acetaminophen. Always read the labels carefully. Ondansetron Oral disintegrating tablet What is this medicine? ONDANSETRON (on ABRAM se myron) is used to treat nausea and vomiting caused by chemotherapy. It is also used to prevent or treat nausea and vomiting after surgery. How should I use this medicine? These tablets are made to dissolve in the mouth. Do not try to push the tablet through the foil backing. With dry hands, peel away the foil backing and gently remove the tablet. Place the tablet in the mouth and allow it to dissolve, then swallow. While you may take these tablets with water, it is not necessary to do so. Talk to your residential sales associate regarding the use of this medicine in children. Special care may be needed. What side effects may I notice from receiving this medicine? Side effects that you should report to your doctor or health child care nurse as soon as possible: allergic reactions like skin rash, itching or hives, swelling of the face, lips, or tongue breathing problems dizziness fast or irregular heartbeat feeling faint or lightheaded, falls fever and chills swelling of the hands and feet tightness in the chest Side effects that usually do not require medical attention (report to your doctor or health child care nurse if they continue or are bothersome): constipation or diarrhea headache What may interact with this medicine? Do not take this medicine with any of the following medications: -apomorphine -cisapride -dofetilide -dronedarone -pimozide -thioridazine -ziprasidone This medicine may also interact with the following medications: -carbamazepine -phenytoin -rifampicin -tramadol -other medicines that prolong the QT interval (cause an abnormal heart rhythm) What if I miss a dose? If you miss a dose, take it as soon as you can. If it is almost time for your next dose, take only that dose. Do not take double or extra doses. Where should I keep my medicine? Keep out of the reach of children. Store between 2 and 30 degrees C (36 and 86 degrees F). Throw away any unused medicine after the expiration date. What should I tell my health care provider before I take this medicine? They need to know if you have any of these conditions: heart disease history of irregular heartbeat liver disease low levels of magnesium or potassium in the blood an unusual or allergic reaction to ondansetron, granisetron, other medicines, foods, dyes, or preservatives or trying to get breast-feeding What should I watch for while using this medicine? Check with your doctor or health child care nurse as soon as you can if you have any sign of an allergic reaction. You have been given the following additional information: Kidney Stone W/ Colic Hydrocodone Bitartrate, Acetaminophen Oral tablet Ondansetron Oral disintegrating tablet (Electronically signed by Elder Stone Dr. 01/26/2017 22:46)
--- NOTE | 2017-01-26 22:46 | ED MED RECONCILIATION SUMMARY ---
Patient: LUIGI LYNN Medication Reconciliation Report [facility] VisitID: [id number] [place] [address] 36y, M Registration Date/Time: 01/26/2017 Weight: 108.8 kg Height/Length: 71 in. BMI: 33.5 ALLERGIES: No Known Drug Allergy The patient's Home Medications are listed below: CONTINUE TAKING THE FOLLOWING MEDICATIONS: Hydrocodone-Acetaminophen Oral 7.5 mg, 3x a day Ibuprofen Oral TraMADol HCl Oral (50 mg) 2 tablets, 2x a day, kidney pain (stones) The source(s) of the original Home Medication information: Not obtained. The following Medications were given to the patient in the Emergency Department: IV NS IV Fluids bolus 0, then 1000 mL/hr, administered: 01/26/2017 3:10:00 PM Toradol [IVP] IVP 30 mg, administered: 01/26/2017 3:11:00 PM Zofran [IVP] IVP 4 mg, administered: 01/26/2017 3:14:00 PM Morphine [IVP] IVP 4 mg, administered: 01/26/2017 3:56:00 PM Flomax [PO] PO 0.4 mg, administered: 01/26/2017 5:10:00 PM Morphine [IVP] IVP 4 mg, administered: 01/26/2017 5:13:00 PM The following Medications were prescribed to the patient: Hydrocodone/APAP 5mg / 325mg: take 1-2 orally every 6 hours as needed for pain. Dispense twenty-five (25). No refill. -- Elder Stone Dr. Zofran (orally disintegrating tablets) 4 mg: take 1 orally every 6 hours as needed for nausea and vomiting. Dispense ten (10). Substitution is permissible. -- Elder Stone Dr. Flomax 0.4 mg: take 1 orally every 24 hours. Dispense fifteen (15). No refills. Substitution is permissible. -- Elder Stone Dr.
--- NOTE | 2017-01-26 22:46 | ED MAR SUMMARY ---
..... Medication Administration Record [facility] [address] [place] [address] Patient: LUIGI LYNN Visit ID: [id number] 36y, M Weight: 108.8 kg Height/Length: 71 in BMI: 33.5 ALLERGIES: No Known Drug Allergy Start 15:10 01/26/2017 Betsy Franks R.N., Stop 17:14 01/26/2017 Karey Brunner R.N. Medication Administered: IV NS (SALINE), Dose: IV Fluids over 1 hour(s), Rate: 1000 mL/hr, Dispensed: 1000 mL bag, Site: #1 left AC. Medication Ordered: IV NS : initial bolus none -, then 1000 mL/hr for X1 (NOW). Given 15:11 01/26/2017 Betsy Franks R.N. Medication Administered: TORADOL [IVP], Dose: 30 mg IVP over 2 minute(s), Site: #1 left AC. Medication Ordered: Toradol IV 30 mg (NOW). Given 15:14 01/26/2017 Betsy Franks R.N. Medication Administered: ZOFRAN [IVP] (ONDANSETRON HCL), Dose: 4 mg IVP over 1 minute(s), Site: #1 left AC. Medication Ordered: Zofran IV 4 mg (NOW). Given 15:56 01/26/2017 Sara Abraham R.N. Medication Administered: MORPHINE [IVP], Dose: 4 mg IVP over 1 minute(s), Site: #1 left AC. Medication Ordered: Morphine IV 4 mg (HIGH ALERT MEDICATION, NOW). Given 17:10 01/26/2017 Karey Brunner R.N. Medication Administered: FLOMAX [PO] (TAMSULOSIN HCL), Dose: 0.4 mg Capsules PO. Medication Ordered: Flomax PO 0.4 mg (Do not crush or chew, NOW). Given 17:13 01/26/2017 Karey Brunner R.N. Medication Administered: MORPHINE [IVP], Dose: 4 mg IVP over 2 minute(s), Site: #1 left AC. Medication Ordered: Morphine IV 4 mg (HIGH ALERT MEDICATION, NOW).
--- NOTE | 2017-01-26 22:46 | ED MED RECONCILIATION SUMMARY ---
Patient: LUIGI LYNN Medication Reconciliation Report [facility] VisitID: [id number] [place] [address] 36y, M Registration Date/Time: 01/26/2017 Weight: 108.8 kg Height/Length: 71 in. BMI: 33.5 ALLERGIES: No Known Drug Allergy The patient's Home Medications are listed below: CONTINUE TAKING THE FOLLOWING MEDICATIONS: Hydrocodone-Acetaminophen Oral 7.5 mg, 3x a day Ibuprofen Oral TraMADol HCl Oral (50 mg) 2 tablets, 2x a day, kidney pain (stones) The source(s) of the original Home Medication information: Not obtained. The following Medications were given to the patient in the Emergency Department: IV NS IV Fluids bolus 0, then 1000 mL/hr, administered: 01/26/2017 3:10:00 PM Toradol [IVP] IVP 30 mg, administered: 01/26/2017 3:11:00 PM Zofran [IVP] IVP 4 mg, administered: 01/26/2017 3:14:00 PM Morphine [IVP] IVP 4 mg, administered: 01/26/2017 3:56:00 PM Flomax [PO] PO 0.4 mg, administered: 01/26/2017 5:10:00 PM Morphine [IVP] IVP 4 mg, administered: 01/26/2017 5:13:00 PM The following Medications were prescribed to the patient: Hydrocodone/APAP 5mg / 325mg: take 1-2 orally every 6 hours as needed for pain. Dispense twenty-five (25). No refill. -- Elder Stone Dr. Zofran (orally disintegrating tablets) 4 mg: take 1 orally every 6 hours as needed for nausea and vomiting. Dispense ten (10). Substitution is permissible. -- Elder Stone Dr. Flomax 0.4 mg: take 1 orally every 24 hours. Dispense fifteen (15). No refills. Substitution is permissible. -- Elder Stone Dr.
== END 2017-01-26 17:50 | disposition home or self-care (01) ==
LOC: ED SRH 14:17
DX: N13.2 Hydronephrosis with renal and ureteral calculous obstruction (principal); Z79.891 Long term (current) use of opiate analgesic; Z79.1 Long term (current) use of non-steroidal anti-inflammatories (NSAID)
CPT/HCPCS: 90004; 90100; 90469; 95059

== ENCOUNTER 2017-02-23 12:34 | Emergency (ER) | payer BC, OTHER ==
--- NOTE | 2017-02-23 15:17 | DIAGNOSTIC IMAGING REPORT ---
PROCEDURE: CT ABDOMEN/PELVIS W/O CONTRAST INDICATION: Right lower quadrant pain. Initial encounter. TECHNIQUE: Noncontrast axial images were obtained of the entire abdomen and pelvis with sagittal and coronal reformations. COMPARISON: CT abdomen/pelvis 01/26/2017. FINDINGS: ABDOMEN: 6 mm calculus at the right UVJ with minimal anterior progression since the prior study. Mild progression of moderate right hydroureteronephrosis. There is mild right perinephric edema. Normal left kidney and ureter. Mild bibasilar scarring. Heart size is normal. Liver, gallbladder, pancreas, spleen and adrenal glands are normal. Normal abdominal aorta. PELVIS: Normal appendix. Mildly enlarged prostate. No inflammatory changes or free fluid. Bones are unremarkable. IMPRESSION: 1. 6 mm calculus at the right UVJ with minimal anterior progression. There is slight progression of moderate right hydroureteronephrosis. 2. Results discussed with SAMANTHA Palomino. All CT scans at this facility use dose modulation, iterative reconstruction, and/or weight-based dosing when appropriate to reduce radiation dose to as low as reasonably achievable.
--- NOTE | 2017-02-23 15:42 | ED CLINICAL REPORT ---
Clinical Report - Physicians/Mid Levels [facility] [address] [place] [address] 02/23/2017 12:35 Patient: LUIGI LYNN Time Seen: 13:18 Feb 23 2017. Arrived- By private vehicle. Historian- patient. HISTORY OF PRESENT ILLNESS Chief Complaint: ABDOMINAL PAIN. It is described as "pain" and it is described as located in the right abdomen. This started just prior to arrival and is still present. (she reports sudden onset of right abdominal pain, with radiation from the front to the back,with no associated nausea vomiting or diarrhea. Denies any similar symptoms to such. Does report history of nephrolithiasis, however this is different, usually his nephrolithiasis pain, starts from the posterior, radiates to the front. Denies urgency frequency. Denies any trauma. Denies any recent illness fevers or chills. Patient denies previous surgery to his abdomen. Denies any recent foreign travel, use of antibiotics, or diarrhea. Denies taking any medications prior to arrival, symptoms started at 7 AM.). REVIEW OF SYSTEMS No constipation, black stools, pain with urination, urinary frequency or fever. No cough or chills. All systems otherwise negative, except as recorded above. SOCIAL HISTORY Smoker- current status unknown. Alcohol use. No drug use. ADDITIONAL NOTES The nursing notes have been reviewed. PHYSICAL EXAM Vital Signs: 02/23/2017 12:35 BP: 142/93. HR: 86. RR: 20. O2 saturation: 100%. Temp: 97.9 F. Pain level now: 06/07. Appearance: Appears to be in pain. Patient in moderate distress. (riding on bed). Eyes: Eyes normal inspection. ENT: Ears normal. Nose normal. Neck: Normal inspection. CVS: Heart sounds normal. Respiratory: No respiratory distress. No respiratory distress. Breath sounds normal. Abdomen: Soft. Mild tenderness in the right side of the abdomen and right lower quadrant. Back: Normal inspection. No CVA tenderness. Skin: Skin warm. Normal skin color. LABS, X-RAYS, AND EKG Laboratory Tests: UA-Culture if indicated: (DAVID: 02/23/2017 12:45) ( [facility] 02/23/2017 13:27) Final results Test Result Flag Units (Reference) URINE COLOR YELLOW URINE APPEARANCE CLEAR URINE GLUCOSE TRACE (NEGATIVE) URINE BILIRUBIN NEGATIVE (NEGATIVE) URINE KETONE NEGATIVE (NEGATIVE) URINE SPECIFIC GRAVITY 1.025 (1.010-1.030) URINE PH 6.0 (5.0-8.0) URINE PROTEIN TRACE (NEGATIVE) URINE UROBILINOGEN 0.2 EU/dL (0.2-1.0) URINE NITRITE NEGATIVE (NEGATIVE) URINE BLOOD 2+ (NEGATIVE) URINE LEUK ESTERASE NEGATIVE (NEGATIVE) URINE RBC 3-5 rbc/hpf (0-1) URINE WBC 1-3 wbc/hpf (0-1) URINE EPITHELIAL CELLS RARE EPI/hpf (0-5) URINE BACTERIA TRACE (<1+) (NONE SEEN) URINE COMMENT CULT NOT INDICATED 2+ MUCOUS. RARE HYALINE CAST. 3-5 CALCIUM OXALATE CRYSTALS.URINE CULTURES ARE SET-UP BASED ON THE FOLLOWING CRITERIA:POSITIVE NITRITEPOSITIVE LEUKOCYTE ESTERASEGREATER THAN 10 WHITE BLOOD CELLSMODERATE (2+) OR GREATER BACTERIA CBC w Diff: (DVAID: 02/23/2017 12:45) ( [facility] 02/23/2017 13:08) Final results Test Result Flag Units (Reference) WHITE BLOOD COUNT 10.1 K/uL (4.5-11.5) RED BLOOD COUNT 5.27 M/uL (4.50-5.90) HEMOGLOBIN 15.9 gm/dL (13.5-17.5) HEMATOCRIT 47.5 % (41.0-53.0) MEAN CELL VOLUME 90 fL (80-100) MEAN CORPUSCULAR HGB 30 pg (26-34) MEAN CORPUSCULAR HGB CONC 34 g/dL (31-37) RED CELL DISTRIBUTION WIDTH 13.6 % (11.6-14.8) PLATELET COUNT 204 K/uL (150-400) NEUTROPHIL % 68.2 % (50-75) LYMPH % 22.0 L % (25-40) MONO % 6.9 % (3-14) EOSINOPHIL % 2.5 % (0-4) BASOPHIL % 0.4 % (0-2) CMP: (DAVID: 02/23/2017 12:45) ( MsgRcvd 02/23/2017 13:17) Final results Test Result Flag Units (Reference) GLUCOSE 102 mg/dL (70-110) BUN 15 mg/dL (7-18) CREATININE 0.9 mg/dL (0.6-1.3) Estimated GFR >60 mL/min Estimated GFR- >60 mL/min Note: Persistent reduction over 3 months in eGFR<60 mL/min/1.73 m2 defines CKD. Patients with eGFR values>=60 mL/min/1.73 m2 may also have CKD if evidence ofpersistent proteinuria. Additional information may be foundat www.[email or web address].org. SODIUM 143 mmol/L (136-145) POTASSIUM 3.9 mmol/L (3.5-5.1) CHLORIDE 107 mmol/L (98-107) CARBON DIOXIDE 28 mmol/L (21-32) CALCIUM 8.8 mg/dL (8.5-10.1) TOTAL PROTEIN 7.8 g/dL (6.4-8.2) ALBUMIN 3.9 g/dL (3.3-5.0) BILIRUBIN, TOTAL 0.4 mg/dL (0.0-1.0) ALKALINE PHOSPHATASE 123 H U/L (46-116) AST (SGOT) 35 U/L (15-37) ALT (SGPT) 68 U/L (12-78) LIPASE 53 L U/L (73-393) AMYLASE 23 L U/L (25-115) . Note - Tests: (CT: 6 mm calculus at right UVJ with minimal anterior progression, slight to moderate right hydro, Dr. Regalado). PROGRESS AND PROCEDURES Course of Care: patient was slight bacteria, slight new pain, will treat with antibiotics, patient in addition patient scheduled for an appointment in 3 days with urology. Patient will be given pain medications, Flomax as well as antiemetic medications. Patient otherwise nseptic and afebrile. No other lang signs of acute surgical abdomen. 02/23/2017 15:57 BP: 130/74. HR: 90. RR: 16. O2 saturation: 100%. Temp: 98.2 F. Pain level now: 2/10. Patient is stable. Physical exam findings are improved. Patient/family counseled. Disposition: Discharged. CLINICAL IMPRESSION Right nephrolithiasis with renal colic. INSTRUCTIONS (Follow up w/ Dr. Rivera 02/26 @ 12:00 ([facility]) UROLOGY). Prescription Medications: Zofran (orally disintegrating tablets) 4 mg: take 1 orally every 6 hours for 3 days as needed for nausea. Dispense fifteen (15). No refill. Substitution is permissible. Cipro 500 mg: take 1 tab orally every 12 hours for 10 days. No refills. Substitution is permissible. Percocet 5 mg/325 mg: take 1 tablet orally every 6 hours as needed for pain. Dispense fifteen (15). No refill. Substitution is permissible. Flomax 0.4 mg: take 1 orally every 24 hours. Dispense ten (10). No refills. Substitution is permissible. Follow-up: Follow up with a specialist 12pm appointment with UROLOGY at [facility] Wednesday. (Electronically signed by Asuncion Whitlock P.A.-C 02/23/2017 18:16)
--- NOTE | 2017-02-23 15:42 | ED CLINICAL REPORT ---
Clinical Report - Physicians/Mid Levels [facility] [address] [place] [address] 02/23/2017 12:35 Patient: LUIGI LYNN Time Seen: 13:18 Feb 23 2017. Arrived- By private vehicle. Historian- patient. HISTORY OF PRESENT ILLNESS Chief Complaint: ABDOMINAL PAIN. It is described as "pain" and it is described as located in the right abdomen. This started just prior to arrival and is still present. (she reports sudden onset of right abdominal pain, with radiation from the front to the back,with no associated nausea vomiting or diarrhea. Denies any similar symptoms to such. Does report history of nephrolithiasis, however this is different, usually his nephrolithiasis pain, starts from the posterior, radiates to the front. Denies urgency frequency. Denies any trauma. Denies any recent illness fevers or chills. Patient denies previous surgery to his abdomen. Denies any recent foreign travel, use of antibiotics, or diarrhea. Denies taking any medications prior to arrival, symptoms started at 7 AM.). REVIEW OF SYSTEMS No constipation, black stools, pain with urination, urinary frequency or fever. No cough or chills. All systems otherwise negative, except as recorded above. SOCIAL HISTORY Smoker- current status unknown. Alcohol use. No drug use. ADDITIONAL NOTES The nursing notes have been reviewed. PHYSICAL EXAM Vital Signs: 02/23/2017 12:35 BP: 142/93. HR: 86. RR: 20. O2 saturation: 100%. Temp: 97.9 F. Pain level now: 06/07. Appearance: Appears to be in pain. Patient in moderate distress. (riding on bed). Eyes: Eyes normal inspection. ENT: Ears normal. Nose normal. Neck: Normal inspection. CVS: Heart sounds normal. Respiratory: No respiratory distress. No respiratory distress. Breath sounds normal. Abdomen: Soft. Mild tenderness in the right side of the abdomen and right lower quadrant. Back: Normal inspection. No CVA tenderness. Skin: Skin warm. Normal skin color. LABS, X-RAYS, AND EKG Laboratory Tests: UA-Culture if indicated: (DAVID: 02/23/2017 12:45) ( [facility] 02/23/2017 13:27) Final results Test Result Flag Units (Reference) URINE COLOR YELLOW URINE APPEARANCE CLEAR URINE GLUCOSE TRACE (NEGATIVE) URINE BILIRUBIN NEGATIVE (NEGATIVE) URINE KETONE NEGATIVE (NEGATIVE) URINE SPECIFIC GRAVITY 1.025 (1.010-1.030) URINE PH 6.0 (5.0-8.0) URINE PROTEIN TRACE (NEGATIVE) URINE UROBILINOGEN 0.2 EU/dL (0.2-1.0) URINE NITRITE NEGATIVE (NEGATIVE) URINE BLOOD 2+ (NEGATIVE) URINE LEUK ESTERASE NEGATIVE (NEGATIVE) URINE RBC 3-5 rbc/hpf (0-1) URINE WBC 1-3 wbc/hpf (0-1) URINE EPITHELIAL CELLS RARE EPI/hpf (0-5) URINE BACTERIA TRACE (<1+) (NONE SEEN) URINE COMMENT CULT NOT INDICATED 2+ MUCOUS. RARE HYALINE CAST. 3-5 CALCIUM OXALATE CRYSTALS.URINE CULTURES ARE SET-UP BASED ON THE FOLLOWING CRITERIA:POSITIVE NITRITEPOSITIVE LEUKOCYTE ESTERASEGREATER THAN 10 WHITE BLOOD CELLSMODERATE (2+) OR GREATER BACTERIA CBC w Diff: (DAVID: 02/23/2017 12:45) ( [facility] 02/23/2017 13:08) Final results Test Result Flag Units (Reference) WHITE BLOOD COUNT 10.1 K/uL (4.5-11.5) RED BLOOD COUNT 5.27 M/uL (4.50-5.90) HEMOGLOBIN 15.9 gm/dL (13.5-17.5) HEMATOCRIT 47.5 % (41.0-53.0) MEAN CELL VOLUME 90 fL (80-100) MEAN CORPUSCULAR HGB 30 pg (26-34) MEAN CORPUSCULAR HGB CONC 34 g/dL (31-37) RED CELL DISTRIBUTION WIDTH 13.6 % (11.6-14.8) PLATELET COUNT 204 K/uL (150-400) NEUTROPHIL % 68.2 % (50-75) LYMPH % 22.0 L % (25-40) MONO % 6.9 % (3-14) EOSINOPHIL % 2.5 % (0-4) BASOPHIL % 0.4 % (0-2) CMP: (DAVID: 02/23/2017 12:45) ( MsgRcvd 02/23/2017 13:17) Final results Test Result Flag Units (Reference) GLUCOSE 102 mg/dL (70-110) BUN 15 mg/dL (7-18) CREATININE 0.9 mg/dL (0.6-1.3) Estimated GFR >60 mL/min Estimated GFR- >60 mL/min Note: Persistent reduction over 3 months in eGFR<60 mL/min/1.73 m2 defines CKD. Patients with eGFR values>=60 mL/min/1.73 m2 may also have CKD if evidence ofpersistent proteinuria. Additional information may be foundat www.[email or web address].org. SODIUM 143 mmol/L (136-145) POTASSIUM 3.9 mmol/L (3.5-5.1) CHLORIDE 107 mmol/L (98-107) CARBON DIOXIDE 28 mmol/L (21-32) CALCIUM 8.8 mg/dL (8.5-10.1) TOTAL PROTEIN 7.8 g/dL (6.4-8.2) ALBUMIN 3.9 g/dL (3.3-5.0) BILIRUBIN, TOTAL 0.4 mg/dL (0.0-1.0) ALKALINE PHOSPHATASE 123 H U/L (46-116) AST (SGOT) 35 U/L (15-37) ALT (SGPT) 68 U/L (12-78) LIPASE 53 L U/L (73-393) AMYLASE 23 L U/L (25-115) . Note - Tests: (CT: 6 mm calculus at right UVJ with minimal anterior progression, slight to moderate right hydro, Dr. Regalado). PROGRESS AND PROCEDURES Course of Care: patient was slight bacteria, slight new pain, will treat with antibiotics, patient in addition patient scheduled for an appointment in 3 days with urology. Patient will be given pain medications, Flomax as well as antiemetic medications. Patient otherwise nseptic and afebrile. No other lang signs of acute surgical abdomen. 02/23/2017 15:57 BP: 130/74. HR: 90. RR: 16. O2 saturation: 100%. Temp: 98.2 F. Pain level now: 2/10. Patient is stable. Physical exam findings are improved. Patient/family counseled. Disposition: Discharged. CLINICAL IMPRESSION Right nephrolithiasis with renal colic. INSTRUCTIONS (Follow up w/ Dr. Rivera 02/26 @ 12:00 ([facility]) UROLOGY). Prescription Medications: Zofran (orally disintegrating tablets) 4 mg: take 1 orally every 6 hours for 3 days as needed for nausea. Dispense fifteen (15). No refill. Substitution is permissible. Cipro 500 mg: take 1 tab orally every 12 hours for 10 days. No refills. Substitution is permissible. Percocet 5 mg/325 mg: take 1 tablet orally every 6 hours as needed for pain. Dispense fifteen (15). No refill. Substitution is permissible. Flomax 0.4 mg: take 1 orally every 24 hours. Dispense ten (10). No refills. Substitution is permissible. Follow-up: Follow up with a specialist 12pm appointment with UROLOGY at [facility] Wednesday. (Electronically signed by Asuncion Whitlock P.A.-C 02/23/2017 18:16)
--- NOTE | 2017-02-23 15:42 | ED NURSING NOTES ---
Clinical Report - Nurses [facility] [place] [address] 02/23/2017 12:35 Patient: LUIGI LYNN TRIAGE Acuity: LEVEL 3. Chief Complaint: ABDOMINAL PAIN, NAUSEA and DIARRHEA. Alert. No acute distress. SEPSIS SCREEN: Sepsis Screen. Negative (no infection suspected/documented). --12:42 Nicole De Los Santos R.N. 12:35 02/23/17. BP: 142/93. HR: 86. RR: 20. O2 saturation: 100% on room air. Temp: 97.9 F (oral). Pain level now: 7/10. --12:42 Nicole De Los Santos R.N. Weight: 124.2 kg stated. Height/Length: 71 inches Per Patient. BMI: 38.2. --12:38 Nicole De Los Santos R.N. Medications Hydrocodone-Acetaminophen Oral 7.5 mg, 3x a day. Ibuprofen Oral. TraMADol HCl Oral (Tablet 50 mg) 2 tablets, 2x a day as needed, kidney pain (stones). --12:37 Nicole De Los Santos R.N. Metoprolol Tartrate Oral. --12:37 Nicole De Los Santos R.N. Medication/allergy information source: the patient. --12:42 Nicole De Los Santos R.N. Allergies No Known Drug Allergy. --12:38 Nicole De Los Santos R.N. History Arrived by EMS. Historian: EMS and patient. Unaccompanied. Primary physician (Travis). This started today. Describes the quality as cramping. Relates location as in the right flank area and right lower quadrant. Notes pain level as 7/10 on arrival. Reports last BM was 1000 today. No fever. Last oral intake by patient was breakfast today (1015). Treatment [employer]: (hydrocodone at 1045 this am). SOCIAL HX: Current every day heavy tobacco smoker (cigarette)- less than 1 pack per day. Occasional alcohol use. No drug use. No recent travel. FALL RISK ASSESSMENT: Fall risk assessment completed. No fall risk identified. NUTRITIONAL RISK ASSESSMENT: The nutritional risk assessment revealed no deficiencies. FUNCTIONAL ASSESSMENT: Functional assessment: no impairments noted. LEARNING NEEDS ASSESSMENT: The learning needs assessment revealed no barriers. SKIN INTEGRITY ASSESSMENT: Skin integrity risk assessment completed. No skin integrity risk identified. --12:42 Nicole De Los Santos R.N. PROBLEMS: Ureterolithiasis. Tinnitus. Hematuria. Hypertension. Chest Pain of GI Origin. Gastritis. Peptic Ulcer Disease. Contusion. Fall. Flank Pain. Recent Travel. Calcium on prostrate. Gastroesophageal Reflux Disease. Anxiety Reaction. Leukocytosis. Abdominal Pain. Urinary Calculi. Renal Colic. Immunizations. --12:39 Nicole De Los Santos R.N. ADDITIONAL SURGERIES: Colonoscopy. Lithotripsy. Renal Stone Manipulation. Shoulder Surgery. --12:39 Nicole De Los Santos R.N. Assessment GENERAL / NEURO / PSYCH: Alert. Oriented X 4. Appears in no acute distress. Appears in pain. [place] Coma Scale: 15- eyes open spontaneously (4); best verbal response- oriented x 4 (5); best motor response- obeys commands (6). Patient appears calm and cooperative. RESPIRATORY: Respirations not labored. CVS: Capillary refill less than 2 seconds. GI / : Abdominal distention. Abdominal tenderness. SKIN: Mucous membranes are pink. Skin is warm and dry. --12:42 Nicole De Los Santos R.N. Interventions ID band on patient. To treatment room. Transported via stretcher. --12:42 Nicole De Los Santos R.N. PHYSICAL ASSESSMENT 12:43 02/23/17. To room via stretcher. GENERAL / NEURO / PSYCH: Alert. Oriented X 4. Appears in no acute distress. HEENT: Mucous membranes are pink. RESPIRATORY: Respirations not labored. CVS: Capillary refill less than 2 seconds. GI / : Abdomen soft. Abdominal tenderness in the right upper quadrant and right side of the abdomen. Guarding present. SKIN: Skin is warm and dry. --12:43 Nicole De Los Santos R.N. NURSING PROGRESS NOTES 12:43 02/23/17. The initial plan of care for this patient has been created This plan of care was discussed with the patient. Patient gowned. Reassurance given. Two patient identifiers checked. Call light placed in reach. Bed placed in lowest position. Brakes of bed on. Patient ready for evaluation- chart flagged and ED physician and PA notified. --12:43 Nicole De Los Santos R.N. 12:44 02/23/17. Checked patient name and birthdate: patient confirmed. Clean catch urine collected with return of yellow-colored clear urine; sample sent to lab for urinalysis. Specimen labeled in the presence of the patient. --12:44 Nicole De Los Santos R.N. 12:45 02/23/2017 Site #1 started via IV in the left hand with an 20g angiocath, with aseptic technique and good blood return; one attempt. Blood drawn: rainbow set. Labeled in the presence of the patient and sent to the lab. Saline lock flushed with 10 mL saline (started by Hailee, ED RN). --12:45 Nicole De Los Santos R.N. 13:22 02/23/2017 PHENERGAN (Promethazine HCl) IVP 12.5 mg given over 2 minute(s) via site #1. Allergies verified and confirmed 5 rights. IV patency established. IV site checked: no pain, redness, or swelling. IV flushed thoroughly pre- and post-medication administration. IVP given by RN. --13: Nicole De Los Santos R.N. 13:23 02/23/2017 Dilaudid (HYDROmorphone HCl PF) IVP 1 mg given over 2 minute(s) via site #1. Allergies verified, confirmed 5 rights and sedative warning given to the patient. IV patency established. IV site checked: no pain, redness, or swelling. IV flushed thoroughly pre- and post-medication administration. IVP given by RN. --13:23 Nicole De Los Santos R.N. 13:23 02/23/2017 Toradol IVP 30 mg given. via site #1. Allergies verified and confirmed 5 rights. IV patency established. IV site checked: no pain, redness, or swelling. IV flushed thoroughly pre- and post-medication administration. --13:28 David Burgess R.N. PA notified. ( pt reports difficulty urinating, "it feels like something is the tube on the bottom of my penis" pt reports that sensation starting last night. PA notified). --13:31 David Burgess R.N. 14:35 02/23/17. BP: 129/77. HR: 74. RR: 17. O2 saturation: 98%. Pain level now 6/10. --14:37 David Burgess R.N. Reassurance given. Reassessment after medication administered. He is calm and resting quietly and has had no adverse reaction. Overall patient status is improved. Call light placed in reach. Side rails up x 1. Bed placed in lowest position. Brakes of bed on. Patient waiting for lab and CT results. ( pt reports improvement in symptoms since arrival. pt does cont to have pain to right LQ that radiates to flank that he rates at a 6/10 with rest. pt in poc, texting on cell phone, aware we are waiting ct results for dispo from ED. call light on lap). --14:37 David Burgess R.N. 15:42 02/23/2017 PHENERGAN (Promethazine HCl) IVP 12.5 mg given over 2 minute(s) via site #1. Allergies verified and confirmed 5 rights. IV patency established. IV site checked: no pain, redness, or swelling. IV flushed thoroughly pre- and post-medication administration. IVP given by RN. --15:57 Checo Hogan R.N. 15:51 02/23/2017 Dilaudid (HYDROmorphone HCl PF) IVP 1 mg given over 2 minute(s) via site #1. Allergies verified, confirmed 5 rights and sedative warning given to the patient. IV patency established. IV site checked: no pain, redness, or swelling. IV flushed thoroughly pre- and post-medication administration. IVP given by RN. --15:56 Checo Hogan R.N. DISPOSITION / DISCHARGE 15:57 02/23/17. BP: 130/74. HR: 90. RR: 16. O2 saturation: 100% on room air. Temp: 98.2 F (oral). Pain level now: 10. --15:58 Checo Hogan R.N. 15:57 02/23/17. Condition at departure: improved. No learning barriers present. Discharge instructions provided and reviewed with the patient. Reviewed warnings. Reviewed medication(s). Treatments reviewed. Patient verbalized understanding. Written instructions provided in [place]. The patient was discharged by the physician nurse practitioner physicians assistant. He was discharged home. He left the Emergency Department ambulatory. --15:58 Checo Hogan R.N. 15:58 02/23/17. The goals identified in the patient's plan of care were met. FALL RISK ASSESSMENT: Fall risk assessment completed. No fall risk identified. --15:58 Checo Hogan R.N. 16:02 02/23/2017 Site #1 removed upon discharge. Catheter intact. Bandage applied. --16:03 Checo Hogan R.N. 16:03 02/23/17. ( Pt educated on how to strain urine, and collect stone when he passes it and provide to PCP. Pt will follow up with urology on 02/26 as per DC instructions). --16:03 Checo Hogan R.N. 16:03 02/23/17. Departure time: 16:03. --16:03 Checo Hogan R.N. Locked/Released at 02/23/2017 16:11 by Checo Hogan R.N.
--- NOTE | 2017-02-23 15:42 | ED ORDER SUMMARY ---
..... Patient: LUIGI LYNN OrderSheet [facility] VisitID: [id number] [place] [address] 37y, M Registration Date/Time: 02/23/2017 ORDER SHEET Weight: 124.2 kg (stated) Allergies: No Known Drug Allergy GENERAL ORDERS: UA-Culture if indicated Urgent (12:46 02/23/2017 MWinterer R.N. per protocol) (Ack 12:47 KHoerner) (13:05 MWinterer R.N.) CMP Urgent (12:46 02/23/2017 MWinterer R.N. per protocol) (Ack 12:47 KHoerner) (13:05 MWinterer R.N.) CBC w Diff Urgent (12:46 02/23/2017 MWinterer R.N. per protocol) (Ack 12:47 KHoerner) (13:05 MWinterer R.N.) Amylase Urgent (12:46 02/23/2017 MWinterer R.N. per protocol) (Ack 12:47 KHoerner) (13:05 MWinterer R.N.) Lipase Urgent (12:46 02/23/2017 MWinterer R.N. per protocol) (Ack 12:47 KHoerner) (13:05 MWinterer R.N.) GC/Chlamydia, Urine (Urine, Clean Catch) (DIRTY) Urgent (13:36 02/23/2017 EKoroleva P.A.-C) (Ack 13:39 KHoerner) (13:50 MWinterer R.N.) CT Abd/Pel wo Cont Urgent (14:03 02/23/2017 EKoroleva P.A.-C) (Ack 14:04 KHoerner) (14:25 KHoerner) MEDICATION ORDERS: Phenergan IV 12.5 mg (HIGH ALERT MEDICATION, NOW) (13:13 02/23/2017 EKoroleva P.A.-C) (Ack 13:15 MWinterer R.N.) (13:22 MWinterer R.N.) Phenergan IV 12.5 mg (HIGH ALERT MEDICATION, NOW) (15:28 02/23/2017 EKoroleva P.A.-C) (Ack 15:48 JBoardley R.N.) (15:57 JBoardley R.N.) IV FLUIDS: IV Saline Lock (12:55 02/23/2017 KPage-Kuchan R.N. per protocol) (12:55 KPage-Kuchan R.N.) Dilaudid IV 1 mg (HIGH ALERT MEDICATION, NOW) (13:13 02/23/2017 EKoroleva P.A.-C) (Ack 13:15 MWinterer R.N.) (13:23 MWinterer R.N.) Toradol IV 30 mg (NOW) (13:19 02/23/2017 EKoroleva P.A.-C) (Ack 13:22 MWinterer R.N.) (13:28 KPage-Kuchan R.N.) Toradol IV 30 mg (NOW) (14:03 02/23/2017 EKoroleva P.A.-C) (Cancelled: Other14:10 EKoroleva P.A.-C) Dilaudid IV 1 mg (HIGH ALERT MEDICATION, NOW) (15:28 02/23/2017 EKoroleva P.A.-C) (Ack 15:48 JBoardley R.N.) (15:56 JBoardley R.N.) ORDER SHEET NOTES: [Electronically signed by Checo Hogan R.N. (16:11 02/23/2017)] [Electronically signed by Asuncion WhitlockAClarke-C (18:16 02/23/2017)] [Electronically locked/signed by Checo Hogan R.N. (16:11 02/23/2017)]
--- NOTE | 2017-02-23 15:42 | ED ORDER SUMMARY ---
..... Patient: LUIGI LYNN OrderSheet [facility] VisitID: [id number] [place] [address] 37y, M Registration Date/Time: 02/23/2017 ORDER SHEET Weight: 124.2 kg (stated) Allergies: No Known Drug Allergy GENERAL ORDERS: UA-Culture if indicated Urgent (12:46 02/23/2017 MWinterer R.N. per protocol) (Ack 12:47 KHoerner) (13:05 MWinterer R.N.) CMP Urgent (12:46 02/23/2017 MWinterer R.N. per protocol) (Ack 12:47 KHoerner) (13:05 MWinterer R.N.) CBC w Diff Urgent (12:46 02/23/2017 MWinterer R.N. per protocol) (Ack 12:47 KHoerner) (13:05 MWinterer R.N.) Amylase Urgent (12:46 02/23/2017 MWinterer R.N. per protocol) (Ack 12:47 KHoerner) (13:05 MWinterer R.N.) Lipase Urgent (12:46 02/23/2017 MWinterer R.N. per protocol) (Ack 12:47 KHoerner) (13:05 MWinterer R.N.) GC/Chlamydia, Urine (Urine, Clean Catch) (DIRTY) Urgent (13:36 02/23/2017 EKoroleva P.A.-C) (Ack 13:39 KHoerner) (13:50 MWinterer R.N.) CT Abd/Pel wo Cont Urgent (14:03 02/23/2017 EKoroleva P.A.-C) (Ack 14:04 KHoerner) (14:25 KHoerner) MEDICATION ORDERS: Phenergan IV 12.5 mg (HIGH ALERT MEDICATION, NOW) (13:13 02/23/2017 EKoroleva P.A.-C) (Ack 13:15 MWinterer R.N.) (13:22 MWinterer R.N.) Phenergan IV 12.5 mg (HIGH ALERT MEDICATION, NOW) (15:28 02/23/2017 EKoroleva P.A.-C) (Ack 15:48 JBoardley R.N.) (15:57 JBoardley R.N.) IV FLUIDS: IV Saline Lock (12:55 02/23/2017 KPage-Kuchan R.N. per protocol) (12:55 KPage-Kuchan R.N.) Dilaudid IV 1 mg (HIGH ALERT MEDICATION, NOW) (13:13 02/23/2017 EKoroleva P.A.-C) (Ack 13:15 MWinterer R.N.) (13:23 MWinterer R.N.) Toradol IV 30 mg (NOW) (13:19 02/23/2017 EKoroleva P.A.-C) (Ack 13:22 MWinterer R.N.) (13:28 KPage-Kuchan R.N.) Toradol IV 30 mg (NOW) (14:03 02/23/2017 EKoroleva P.A.-C) (Cancelled: Other14:10 EKoroleva P.A.-C) Dilaudid IV 1 mg (HIGH ALERT MEDICATION, NOW) (15:28 02/23/2017 EKoroleva P.A.-C) (Ack 15:48 JBoardley R.N.) (15:56 JBoardley R.N.) ORDER SHEET NOTES: [Electronically signed by Checo Hogan R.N. (16:11 02/23/2017)] [Electronically signed by Asuncion WhitlockAClarke-C (18:16 02/23/2017)] [Electronically locked/signed by Checo Hogan R.N. (16:11 02/23/2017)]
--- NOTE | 2017-02-23 18:16 | ED MAR SUMMARY ---
..... Medication Administration Record [facility] [address] [place] [address] Patient: LUIGI LYNN Visit ID: [id number] 37y, M Weight: 124.2 kg Height/Length: 71 in BMI: 38.2 ALLERGIES: No Known Drug Allergy Given 13:02/23/2017 Nicole De Los Santos R.N. Medication Administered: PHENERGAN [IVP] (PROMETHAZINE HCL), Dose: 12.5 mg IVP over 2 minute(s), Site: #1 left hand. Medication Ordered: Phenergan IV 12.5 mg (HIGH ALERT MEDICATION, NOW). Given 13:02/23/2017 Nicole De Los Santos R.N. Medication Administered: DILAUDID [IVP] (HYDROMORPHONE HCL PF), Dose: 1 mg IVP over 2 minute(s), Site: #1 left hand. Medication Ordered: Dilaudid IV 1 mg (HIGH ALERT MEDICATION, NOW). Given 13:02/23/2017 David Burgess R.N. Medication Administered: TORADOL [IVP], Dose: 30 mg IVP, Site: #1 left hand. Medication Ordered: Toradol IV 30 mg (NOW). Given 15:42 02/23/2017 Checo Hogan R.N. Medication Administered: PHENERGAN [IVP] (PROMETHAZINE HCL), Dose: 12.5 mg IVP over 2 minute(s), Site: #1 left hand. Medication Ordered: Phenergan IV 12.5 mg (HIGH ALERT MEDICATION, NOW). Given 15:51 02/23/2017 Checo Hogan R.N. Medication Administered: DILAUDID [IVP] (HYDROMORPHONE HCL PF), Dose: 1 mg IVP over 2 minute(s), Site: #1 left hand. Medication Ordered: Dilaudid IV 1 mg (HIGH ALERT MEDICATION, NOW).
--- NOTE | 2017-02-23 18:16 | ED MED RECONCILIATION SUMMARY ---
Patient: LUIGI LYNN Medication Reconciliation Report [facility] VisitID: [id number] [place] [address] 37y, M Registration Date/Time: 02/23/2017 Weight: 124.2 kg Height/Length: 71 in. BMI: 38.2 ALLERGIES: No Known Drug Allergy The patient's Home Medications are listed below: THE FOLLOWING MEDICATIONS NEED TO BE RECONCILED: Hydrocodone-Acetaminophen Oral 7.5 mg, 3x a day Ibuprofen Oral Metoprolol Tartrate Oral TraMADol HCl Oral (50 mg) 2 tablets, 2x a day, kidney pain (stones) The source(s) of the original Home Medication information: patient The following Medications were given to the patient in the Emergency Department: PHENERGAN [IVP] IVP 12.5 mg, administered: 02/23/2017 1:22:00 PM Dilaudid [IVP] IVP 1 mg, administered: 02/23/2017 1:23:00 PM Toradol [IVP] IVP 30 mg, administered: 02/23/2017 1:23:00 PM Dilaudid [IVP] IVP 1 mg, administered: 02/23/2017 3:51:00 PM PHENERGAN [IVP] IVP 12.5 mg, administered: 02/23/2017 3:42:00 PM The following Medications were prescribed to the patient: Zofran (orally disintegrating tablets) 4 mg: take 1 orally every 6 hours for 3 days as needed for nausea. Dispense fifteen (15). No refill. Substitution is permissible. -- Asuncion Whitlock, P.A.-C Cipro 500 mg: take 1 tab orally every 12 hours for 10 days. No refills. Substitution is permissible. -- Asuncion Whitlock, P.A.-C Percocet 5 mg/325 mg: take 1 tablet orally every 6 hours as needed for pain. Dispense fifteen (15). No refill. Substitution is permissible. -- Asuncion Whitlock, P.A.-C Flomax 0.4 mg: take 1 orally every 24 hours. Dispense ten (10). No refills. Substitution is permissible. -- KoroleAsuncion jaramillo P.A.-C
--- NOTE | 2017-02-23 18:16 | ED DISCHARGE INSTRUCTIONS ---
Patient: LUIGI LNYN General Instructions [facility] VisitID: [id number] [place] [address] 37y, M Registration Date/Time: 02/23/2017 Right nephrolithiasis with renal colic. INSTRUCTIONS (Follow up w/ Dr. Rivera 02/26 @ 12:00 ([facility]) UROLOGY). Prescription Medications: Zofran (orally disintegrating tablets) 4 mg: take 1 orally every 6 hours for 3 days as needed for nausea. Dispense fifteen (15). No refill. Substitution is permissible. Cipro 500 mg: take 1 tab orally every 12 hours for 10 days. No refills. Substitution is permissible. Percocet 5 mg/325 mg: take 1 tablet orally every 6 hours as needed for pain. Dispense fifteen (15). No refill. Substitution is permissible. Flomax 0.4 mg: take 1 orally every 24 hours. Dispense ten (10). No refills. Substitution is permissible. Follow-up: Follow up with a specialist 12pm appointment with UROLOGY at [facility] Wednesday. ADDITIONAL INFORMATION Kidney Stone (W/ Colic) The sharp cramping pain and nausea/vomiting that you have is due to a small stone which has formed in the kidney and is now passing down a narrow tube (ureter) on its way to your bladder. Once it reaches your bladder, the pain will stop. The stone may pass in your urine stream in one piece. [The size may be 1/16" to 1/4" (1-6mm)]. Or, the stone may also break up into tacho fragments which you may not even notice. Once you have had a kidney stone, you are at risk for developing another one in the future. Home Care: Drink plenty of fluids (at least 8 to 10 glasses of water a day). Most stones will pass on their own, but may take from a few hours to a few days. Sometimes the stone is too large to pass by itself and special methods will have to be used to remove the stone. Each time you urinate, do so in a jar. Pour the urine from the jar through the strainer and into the toilet. Continue doing this until 24 hours after your pain stops. By then, if there was a kidney stone, it should pass from your bladder. Some stones dissolve into sand-like particles and pass right through the strainer. In that case, you wont ever see a stone. Save any stone that you find in the strainer and bring it to your doctor for analysis. It may be possible to prevent certain types of stones from forming. Therefore, it is important to know what kind of stone you have. Try to stay as active as possible since this will help the stone pass. Do not stay in bed unless your pain prevents you from getting up. You may notice a red, pink or brown color to your urine. This is normal while passing a kidney stone. Follow Up with your doctor or return to this facility if the pain lasts more than 48 hours. Get Prompt Medical Attention if any of the following occur: Pain that is not controlled by the medicine given Repeated vomiting or unable to keep down fluids Weakness, dizziness or fainting Fever of 100.4F (38C) or higher, or as directed by your healthcare provider Passage of solid red or brown urine (can't see through it) or urine with lots of blood clots Unable to pass urine for 8 hours and increasing bladder pressure Blood In The Urine Blood in the urine ("hematuria") has many possible causes. If it occurs after an injury (such as a car accident or fall), it is most often a sign of bruising to the kidney or bladder. Common medical causes of blood in the urine include urinary tract infection, kidney stone, inflammation, tumors, or certain other diseases of the kidney or bladder. Menstruation can cause blood to appear in the urine sample, although it is not coming from the urinary tract. If only a trace amount of blood is present, it will show up on the urine test, even though the urine may be yellow and not pink or red. This may occur with any of the above conditions, as well as heavy exercise or high fever. In this case, your doctor may want to repeat the urine test on another day. This will show if the blood is still present. If so, then other tests can be done to find out the cause. Home Care: If your urine does not appear bloody (pink, brown or red) then you do not need to restrict your activity in any way. If you can see blood in your urine, rest and avoid heavy exertion until your next exam. Do not use aspirin or anti-inflammatory medicine like ibuprofen (Motrin, Advil) or naproxen (Naprosyn, Aleve). These thin the blood and may increase bleeding. Follow Up with your doctor or as advised by our staff. If you were injured and had blood in your urine, you should have a repeat urine test in 1-2 days. Contact your doctor or return to this facility for this test. [NOTE: A radiologist will review any X-rays that were taken. We will notify you of any new findings that may affect your care.] Get Prompt Medical Attention if any of the following occur: Bright red blood or blood clots in the urine (if a new symptom) Weakness, dizziness or fainting New groin, abdominal or back pain Fever of 100.4F (38C) or higher, or as directed by your healthcare provider Repeated vomiting Bleeding from nose, gums or easy bruising Ondansetron Hydrochloride Oral tablet What is this medicine? ONDANSETRON (on ABRAM se myron) is used to treat nausea and vomiting caused by chemotherapy. It is also used to prevent or treat nausea and vomiting after surgery. How should I use this medicine? Take this medicine by mouth with a glass of water. Follow the directions on your prescription label. Take your doses at regular intervals. Do not take your medicine more often than directed. Talk to your steaming machine operator regarding the use of this medicine in children. Special care may be needed. What side effects may I notice from receiving this medicine? Side effects that you should report to your doctor or health skin care specialist as soon as possible: allergic reactions like skin rash, itching or hives, swelling of the face, lips or tongue breathing problems dizziness fast or irregular heartbeat feeling faint or lightheaded, falls fever and chills swelling of the hands or feet tightness in the chest Side effects that usually do not require medical attention (report to your doctor or health skin care specialist if they continue or are bothersome): constipation or diarrhea headache What may interact with this medicine? Do not take this medicine with any of the following medications: -apomorphine -cisapride -dofetilide -dronedarone -pimozide -thioridazine -ziprasidone This medicine may also interact with the following medications: -carbamazepine -phenytoin -rifampicin -tramadol -other medicines that prolong the QT interval (cause an abnormal heart rhythm) What if I miss a dose? If you miss a dose, take it as soon as you can. If it is almost time for your next dose, take only that dose. Do not take double or extra doses. Where should I keep my medicine? Keep out of the reach of children. Store between 2 and 30 degrees C (36 and 86 degrees F). Throw away any unused medicine after the expiration date. What should I tell my health care provider before I take this medicine? They need to know if you have any of these conditions: heart disease history of irregular heartbeat liver disease low levels of magnesium or potassium in the blood an unusual or allergic reaction to ondansetron, granisetron, other medicines, foods, dyes, or preservatives or trying to get breast-feeding What should I watch for while using this medicine? Check with your doctor or health skin care specialist right away if you have any sign of an allergic reaction. Ciprofloxacin Hydrochloride Oral tablet What is this medicine? CIPROFLOXACIN (sip maged FLOX a sin) is a quinolone antibiotic. It is used to treat certain kinds of bacterial infections. It will not work for colds, flu, or other viral infections. How should I use this medicine? Take this medicine by mouth with a glass of water. Follow the directions on the prescription label. Take your medicine at regular intervals. Do not take your medicine more often than directed. Take all of your medicine as directed even if you think your are better. Do not skip doses or stop your medicine early. You can take this medicine with food or on an empty stomach. It can be taken with a meal that contains dairy or calcium, but do not take it alone with a dairy product, like milk or yogurt or calcium-fortified juice. A special MedGuide will be given to you by the pharmacist with each prescription and refill. Be sure to read this information carefully each time. Talk to your steaming machine operator regarding the use of this medicine in children. Special care may be needed. What side effects may I notice from receiving this medicine? Side effects that you should report to your doctor or health skin care specialist as soon as possible: - allergic reactions like skin rash, itching or hives, swelling of the face, lips, or tongue - breathing problems - confusion, nightmares or hallucinations - feeling faint or lightheaded, falls - irregular heartbeat - joint, muscle or tendon pain or swelling - pain or trouble passing urine -persistent headache with or without blurred vision - redness, blistering, peeling or loosening of the skin, including inside the mouth - seizure - unusual pain, numbness, tingling, or weakness Side effects that usually do not require medical attention (report to your doctor or health skin care specialist if they continue or are bothersome): - diarrhea - nausea or stomach upset - white patches or sores in the mouth What may interact with this medicine? Do not take this medicine with any of the following medications: cisapride droperidol terfenadine tizanidine This medicine may also interact with the following medications: antacids caffeine cyclosporin didanosine (ddI) buffered tablets or powder medicines for diabetes medicines for inflammation like ibuprofen, naproxen methotrexate multivitamins omeprazole phenytoin probenecid sucralfate theophylline warfarin What if I miss a dose? If you miss a dose, take it as soon as you can. If it is almost time for your next dose, take only that dose. Do not take double or extra doses. Where should I keep my medicine? Keep out of the reach of children. Store at room temperature below 30 degrees C (86 degrees F). Keep container tightly closed. Throw away any unused medicine after the expiration date. What should I tell my health care provider before I take this medicine? They need to know if you have any of these conditions: -bone problems -cerebral disease -joint problems -irregular heartbeat -kidney disease -liver disease -myasthenia gravis -seizure disorder -tendon problems -an unusual or allergic reaction to ciprofloxacin, other antibiotics or medicines, foods, dyes, or preservatives - or trying to get -breast-feeding What should I watch for while using this medicine? Tell your doctor or health skin care specialist if your symptoms do not improve. Do not treat diarrhea with over the counter products. Contact your doctor if you have diarrhea that lasts more than 2 days or if it is severe and watery. You may get drowsy or dizzy. Do not drive, use machinery, or do anything that needs mental alertness until you know how this medicine affects you. Do not stand or sit up quickly, especially if you are an older patient. This reduces the risk of dizzy or fainting spells. This medicine can make you more sensitive to the sun. Keep out of the sun. If you cannot avoid being in the sun, wear protective clothing and use sunscreen. Do not use sun lamps or tanning beds/booths. Avoid antacids, aluminum, calcium, iron, magnesium, and zinc products for 6 hours before and 2 hours after taking a dose of this medicine. Oxycodone Hydrochloride, Acetaminophen Oral tablet What is this medicine? ACETAMINOPHEN; OXYCODONE (a set a AMY shanel fen; ox i KOE done) is a pain reliever. It is used to treat mild to moderate pain. How should I use this medicine? Take this medicine by mouth with a full glass of water. Follow the directions on the prescription label. Take your medicine at regular intervals. Do not take your medicine more often than directed. Talk to your steaming machine operator regarding the use of this medicine in children. Special care may be needed. Patients over 65 years old may have a stronger reaction and need a smaller dose. What side effects may I notice from receiving this medicine? Side effects that you should report to your doctor or health skin care specialist as soon as possible: allergic reactions like skin rash, itching or hives, swelling of the face, lips, or tongue breathing difficulties, wheezing confusion light headedness or fainting spells severe stomach pain yellowing of the skin or the whites of the eyes Side effects that usually do not require medical attention (report to your doctor or health skin care specialist if they continue or are bothersome): dizziness drowsiness nausea vomiting What may interact with this medicine? alcohol antihistamines barbiturates like amobarbital, butalbital, butabarbital, methohexital, pentobarbital, phenobarbital, thiopental, and secobarbital benztropine drugs for bladder problems like solifenacin, trospium, oxybutynin, tolterodine, hyoscyamine, and methscopolamine drugs for breathing problems like ipratropium and tiotropium drugs for certain stomach or intestine problems like propantheline, homatropine methylbromide, glycopyrrolate, atropine, belladonna, and dicyclomine general anesthetics like etomidate, ketamine, nitrous oxide, propofol, desflurane, enflurane, halothane, isoflurane, and sevoflurane medicines for depression, anxiety, or psychotic disturbances medicines for sleep muscle relaxants naltrexone narcotic medicines (opiates) for pain phenothiazines like perphenazine, thioridazine, chlorpromazine, mesoridazine, fluphenazine, prochlorperazine, promazine, and trifluoperazine scopolamine tramadol trihexyphenidyl What if I miss a dose? If you miss a dose, take it as soon as you can. If it is almost time for your next dose, take only that dose. Do not take double or extra doses. Where should I keep my medicine? Keep out of the reach of children. This medicine can be abused. Keep your medicine in a safe place to protect it from theft. Do not share this medicine with anyone. Selling or giving away this medicine is dangerous and against the law. Store at room temperature between 20 and 25 degrees C (68 and 77 degrees F). Keep container tightly closed. Protect from light. This medicine may cause accidental overdose and if it is taken by other adults, children, or pets. Flush any unused medicine down the toilet to reduce the chance of harm. Do not use the medicine after the expiration date. What should I tell my health care provider before I take this medicine? They need to know if you have any of these conditions: brain tumor Crohn's disease, inflammatory bowel disease, or ulcerative colitis drink more than 3 alcohol containing drinks per day drug abuse or addiction head injury heart or circulation problems kidney disease or problems going to the bathroom liver disease lung disease, asthma, or breathing problems an unusual or allergic reaction to acetaminophen, oxycodone, other opioid analgesics, other medicines, foods, dyes, or preservatives or trying to get breast-feeding What should I watch for while using this medicine? Tell your doctor or health skin care specialist if your pain does not go away, if it gets worse, or if you have new or a different type of pain. You may develop tolerance to the medicine. Tolerance means that you will need a higher dose of the medication for pain relief. Tolerance is normal and is expected if you take this medicine for a long time. Do not suddenly stop taking your medicine because you may develop a severe reaction. Your body becomes used to the medicine. This does NOT mean you are addicted. Addiction is a behavior related to getting and using a drug for a non-medical reason. If you have pain, you have a medical reason to take pain medicine. Your doctor will tell you how much medicine to take. If your doctor wants you to stop the medicine, the dose will be slowly lowered over time to avoid any side effects. You may get drowsy or dizzy. Do not drive, use machinery, or do anything that needs mental alertness until you know how this medicine affects you. Do not stand or sit up quickly, especially if you are an older patient. This reduces the risk of dizzy or fainting spells. Alcohol may interfere with the effect of this medicine. Avoid alcoholic drinks. There are different types of narcotic medicines (opiates) for pain. If you take more than one type at the same time, you may have more side effects. Give your health care provider a list of all medicines you use. Your doctor will tell you how much medicine to take. Do not take more medicine than directed. Call emergency for help if you have problems breathing. The medicine will cause constipation. Try to have a bowel movement at least every 2 to 3 days. If you do not have a bowel movement for 3 days, call your doctor or health skin care specialist. Do not take Tylenol (acetaminophen) or medicines that have acetaminophen with this medicine. Too much acetaminophen can be very dangerous. Many nonprescription medicines contain acetaminophen. Always read the labels carefully to avoid taking more acetaminophen. You have been given the following additional information: Kidney Stone W/ Colic Hematuria Ondansetron Hydrochloride Oral tablet Ciprofloxacin Hydrochloride Oral tablet Oxycodone Hydrochloride, Acetaminophen Oral tablet (Electronically signed by Asuncion Whitlock P.A.-C 02/23/2017 18:16)
--- NOTE | 2017-02-23 18:16 | ED MAR SUMMARY ---
..... Medication Administration Record Formerly [facility] [address] [place] [address] Patient: LUIGI LYNN Visit ID: [id number] 37y, M Weight: 124.2 kg Height/Length: 71 in BMI: 38.2 ALLERGIES: No Known Drug Allergy Given 13:02/23/2017 Nicole De Los Santos R.N. Medication Administered: PHENERGAN [IVP] (PROMETHAZINE HCL), Dose: 12.5 mg IVP over 2 minute(s), Site: #1 left hand. Medication Ordered: Phenergan IV 12.5 mg (HIGH ALERT MEDICATION, NOW). Given 13:02/23/2017 Nicole De Los Santos R.N. Medication Administered: DILAUDID [IVP] (HYDROMORPHONE HCL PF), Dose: 1 mg IVP over 2 minute(s), Site: #1 left hand. Medication Ordered: Dilaudid IV 1 mg (HIGH ALERT MEDICATION, NOW). Given 13:02/23/2017 David Burgess R.N. Medication Administered: TORADOL [IVP], Dose: 30 mg IVP, Site: #1 left hand. Medication Ordered: Toradol IV 30 mg (NOW). Given 15:42 02/23/2017 Checo Hogan R.N. Medication Administered: PHENERGAN [IVP] (PROMETHAZINE HCL), Dose: 12.5 mg IVP over 2 minute(s), Site: #1 left hand. Medication Ordered: Phenergan IV 12.5 mg (HIGH ALERT MEDICATION, NOW). Given 15:51 02/23/2017 Checo Hogan R.N. Medication Administered: DILAUDID [IVP] (HYDROMORPHONE HCL PF), Dose: 1 mg IVP over 2 minute(s), Site: #1 left hand. Medication Ordered: Dilaudid IV 1 mg (HIGH ALERT MEDICATION, NOW).
--- NOTE | 2017-02-23 18:16 | ED MED RECONCILIATION SUMMARY ---
Patient: LUIGI LYNN Medication Reconciliation Report [facility] VisitID: [id number] [place] [address] 37y, M Registration Date/Time: 02/23/2017 Weight: 124.2 kg Height/Length: 71 in. BMI: 38.2 ALLERGIES: No Known Drug Allergy The patient's Home Medications are listed below: THE FOLLOWING MEDICATIONS NEED TO BE RECONCILED: Hydrocodone-Acetaminophen Oral 7.5 mg, 3x a day Ibuprofen Oral Metoprolol Tartrate Oral TraMADol HCl Oral (50 mg) 2 tablets, 2x a day, kidney pain (stones) The source(s) of the original Home Medication information: patient The following Medications were given to the patient in the Emergency Department: PHENERGAN [IVP] IVP 12.5 mg, administered: 02/23/2017 1:22:00 PM Dilaudid [IVP] IVP 1 mg, administered: 02/23/2017 1:23:00 PM Toradol [IVP] IVP 30 mg, administered: 02/23/2017 1:23:00 PM Dilaudid [IVP] IVP 1 mg, administered: 02/23/2017 3:51:00 PM PHENERGAN [IVP] IVP 12.5 mg, administered: 02/23/2017 3:42:00 PM The following Medications were prescribed to the patient: Zofran (orally disintegrating tablets) 4 mg: take 1 orally every 6 hours for 3 days as needed for nausea. Dispense fifteen (15). No refill. Substitution is permissible. -- Asuncion Whitlock, P.A.-C Cipro 500 mg: take 1 tab orally every 12 hours for 10 days. No refills. Substitution is permissible. -- Asuncion Whitlock, P.A.-C Percocet 5 mg/325 mg: take 1 tablet orally every 6 hours as needed for pain. Dispense fifteen (15). No refill. Substitution is permissible. -- Asuncion Whitlock, P.A.-C Flomax 0.4 mg: take 1 orally every 24 hours. Dispense ten (10). No refills. Substitution is permissible. -- KoroleAsuncion jaramillo P.A.-C
== END 2017-02-23 16:05 | disposition home or self-care (01) ==
LOC: ED SRH 12:34
DX: N20.0 Calculus of kidney (principal); Z87.442 Personal history of urinary calculi
CPT/HCPCS: 90004; 90100; 91227; 91228; 92235; 92530; 95059

== ENCOUNTER 2017-05-28 17:56 | Emergency (ER) | payer BC, OTHER ==
--- NOTE | 2017-05-28 19:00 | DIAGNOSTIC IMAGING REPORT ---
PROCEDURE: XR KNEE 4 VIEWS - RIGHT INDICATION: TRAUMA/INJURY TECHNIQUE: Four views of the right knee. COMPARISON: None. FINDINGS: Normal mineralization. No fractures. Normal osseous alignment. A smooth, healed deformity of prior proximal fibular fracture. No joint effusion. No suspicious soft-tissue calcification or radiodense foreign bodies. IMPRESSION: 1. Intact right knee. 2. Healed, remote proximal fibular fracture.
--- NOTE | 2017-05-28 19:00 | ED ORDER SUMMARY ---
..... Patient: LUIGI LYNN OrderSheet [facility] VisitID: [id number] [place] [address] 37y, M Registration Date/Time: 05/28/2017 ORDER SHEET Weight: 115.6 kg (stated) Allergies: No Known Drug Allergy GENERAL ORDERS: Knee 4V Right Urgent (18:32 05/28/2017 Kishor BARRETO) (Ack 18:41 PWeiler ER Tech1) (19:00 ASchmuck) Knee Immobilizer (18:57 05/28/2017 Kishor BARRETO) (Ack 19:06 PWeiler ER Tech1) (19:09 ASchmuck) Crutches (18:57 05/28/2017 Kishor BARRETO) (Ack 19:06 PWeiler ER Tech1) (19:09 ASchmuck) MEDICATION ORDERS: IV FLUIDS: ORDER SHEET NOTES: [Electronically signed by Roberta Bowman (19:12 05/28/2017)] [Electronically signed by Isidoro Ho MD (16:36 05/29/2017)] [Electronically locked/signed by Roberta Bowman (19:12 05/28/2017)]
--- NOTE | 2017-05-28 19:00 | ED NURSING NOTES ---
Clinical Report - Nurses [place] [address] [place] [address] 05/28/2017 17:57 Patient: LUIGI LYNN TRIAGE Triage time 18:May 28 2017. Acuity: LEVEL 4. Chief Complaint: INJURY TO RIGHT KNEE. 18:07 05/28/17. Alert. No acute distress. SEPSIS SCREEN: Sepsis Screen. Negative (no infection suspected/documented). COTY COMA SCORE: [place] Coma Scale: 15- eyes open spontaneously (4); best verbal response- oriented x 4 (5); best motor response- obeys commands (6). --18:07 Roberta Bowman 18:05/28/17. BP: 153/97. HR: 97. RR: 17. O2 saturation: 98%. Temp: 98.2 F. Pain level now 7/10. --18:07 Roberta Bowman. Weight: 115.6 kg stated. Height/Length: 71 inches Per Patient. BMI: 35.6. --18:06 Roberta Bowman. Medications Hydrocodone-Acetaminophen Oral 7.5 mg, 3x a day. Ibuprofen Oral. TraMADol HCl Oral (Tablet 50 mg) 2 tablets, 2x a day as needed, kidney pain (stones). --18:06 Roberta Bowman Methocarbamol Oral. --18:06 Roberta Bowman. Medication/allergy information source: the patient. --18:07 Roberta Bowman. Allergies No Known Drug Allergy. --18:06 Roberta Bowman. History Arrived by private vehicle. Historian: patient. Accompanied by family. Primary physician (Travis). This occurred (One month ago, but today got worse.). Occurred at home. ( Pt reports that he hurt his knee about a month ago slipping off of a step. Last night he was standing and his knee gave out. Has an MRI scheduled on Wednesday. States that he just "couldn't take it anymore."). He has had trouble walking. No numbness, tingling, neck pain or back pain. Treatment DAY CARE DIRECTOR: Applied ice. ([place]). PAST MEDICAL HX: Tetanus status: up-to-date. Immunizations: up-to-date. SOCIAL HX: Heavy tobacco smoker (cigarette)- less than 1 pack per day. No alcohol use or drug use. FALL RISK ASSESSMENT: Fall risk assessment completed. No fall risk identified. NUTRITIONAL RISK ASSESSMENT: The nutritional risk assessment revealed no deficiencies. FUNCTIONAL ASSESSMENT: Functional assessment: no impairments noted. LEARNING NEEDS ASSESSMENT: The learning needs assessment revealed no barriers. SKIN INTEGRITY ASSESSMENT: Skin integrity risk assessment completed. No skin integrity risk identified. --18:07 Roberta Bowman. PROBLEMS: Nephrolithiasis. Ureterolithiasis. Tinnitus. Hematuria. Hypertension. Chest Pain of GI Origin. Gastritis. Peptic Ulcer Disease. Contusion. Fall. Flank Pain. Recent Travel. Calcium on prostrate. Gastroesophageal Reflux Disease. Anxiety Reaction. Leukocytosis. Abdominal Pain. Urinary Calculi. Renal Colic. Immunizations. --18:06 Roberta Bowman. ADDITIONAL SURGERIES: Colonoscopy. Lithotripsy. Renal Stone Manipulation. Shoulder Surgery. --18:06 Roberta Bowman. Assessment The patient states feels the same. --18:07 Roberta Bowman. Interventions ID band on patient. --18:07 Roberta Bowman. PHYSICAL ASSESSMENT 18:05/28/17. Ambulatory to room. Patient gowned. GENERAL / NEURO / PSYCH: Oriented X 4. Alert. Appears in no acute distress. EXTREMITIES: Limited ROM present. Capillary refill is less than 2 seconds in the extremities. Extremity pulses are within normal limits. Limping gait. Neuro-vascular status intact to the extremity. Right knee: tenderness. SKIN: Skin intact. Skin is warm and dry. --18:08 Roberta Bowman. NURSING PROGRESS NOTES 18:05/28/17. The plan of care for this patient has been created. Cold pack applied. Extremity elevated. Neuro-vascular extremity check. Reassurance given. Two patient identifiers checked. Call light placed in reach. Side rails up x 1. Bed placed in lowest position. Brakes of bed on. Patient ready for evaluation- chart flagged and ED physician and RIGHT OF WAY SUPERVISOR notified. --18:08 Roberta Bowman. DISPOSITION / DISCHARGE 19:10 05/28/17. Departure time: 19:May 28 2017. Condition at departure: improved. The goals identified in the patient's plan of care were met. No learning barriers present. Discharge instructions provided and reviewed with the patient. Reviewed warnings (Patient verbalized awareness of warning s/sx listed in dc paperwork.). Treatments reviewed. Reviewed referral to a primary care physician for followup. Patient verbalized understanding. Written instructions provided in [place]. The patient was discharged by the physician. He was discharged home and unaccompanied at time of discharge. He left the Emergency Department on crutches and via private vehicle. Patient driving. FALL RISK ASSESSMENT: Fall risk assessment completed. No fall risk identified. --19:10 Roberta Bowman 19:09 05/28/17. BP: 148/100. HR: 92. RR: 17. O2 saturation: 97% on room air. Temp: 98.4 F (oral). Pain level now: 07/08. --19:10 Roberta Bowman. Locked/Released at 05/28/2017 19:12 by Roberta Bowman,
--- NOTE | 2017-05-28 19:00 | ED NURSING NOTES ---
Clinical Report - Nurses [place] [address] [place] [address] 05/28/2017 17:57 Patient: LUIGI LYNN TRIAGE Triage time 18:May 28 2017. Acuity: LEVEL 4. Chief Complaint: INJURY TO RIGHT KNEE. 18:07 05/28/17. Alert. No acute distress. SEPSIS SCREEN: Sepsis Screen. Negative (no infection suspected/documented). COTY COMA SCORE: [place] Coma Scale: 15- eyes open spontaneously (4); best verbal response- oriented x 4 (5); best motor response- obeys commands (6). --18:07 Roberta Bowman 18:05/28/17. BP: 153/97. HR: 97. RR: 17. O2 saturation: 98%. Temp: 98.2 F. Pain level now 7/10. --18:07 Roberta Bowman. Weight: 115.6 kg stated. Height/Length: 71 inches Per Patient. BMI: 35.6. --18:06 Roberta Bowman. Medications Hydrocodone-Acetaminophen Oral 7.5 mg, 3x a day. Ibuprofen Oral. TraMADol HCl Oral (Tablet 50 mg) 2 tablets, 2x a day as needed, kidney pain (stones). --18:06 Roberta Bowman Methocarbamol Oral. --18:06 Roberta Bowman. Medication/allergy information source: the patient. --18:07 Roberta Bowman. Allergies No Known Drug Allergy. --18:06 Roberta Bowman. History Arrived by private vehicle. Historian: patient. Accompanied by family. Primary physician (Travis). This occurred (One month ago, but today got worse.). Occurred at home. ( Pt reports that he hurt his knee about a month ago slipping off of a step. Last night he was standing and his knee gave out. Has an MRI scheduled on Wednesday. States that he just "couldn't take it anymore."). He has had trouble walking. No numbness, tingling, neck pain or back pain. Treatment POST PRODUCTION ASSISTANT: Applied ice. ([place]). PAST MEDICAL HX: Tetanus status: up-to-date. Immunizations: up-to-date. SOCIAL HX: Heavy tobacco smoker (cigarette)- less than 1 pack per day. No alcohol use or drug use. FALL RISK ASSESSMENT: Fall risk assessment completed. No fall risk identified. NUTRITIONAL RISK ASSESSMENT: The nutritional risk assessment revealed no deficiencies. FUNCTIONAL ASSESSMENT: Functional assessment: no impairments noted. LEARNING NEEDS ASSESSMENT: The learning needs assessment revealed no barriers. SKIN INTEGRITY ASSESSMENT: Skin integrity risk assessment completed. No skin integrity risk identified. --18:07 Roberta Bowman. PROBLEMS: Nephrolithiasis. Ureterolithiasis. Tinnitus. Hematuria. Hypertension. Chest Pain of GI Origin. Gastritis. Peptic Ulcer Disease. Contusion. Fall. Flank Pain. Recent Travel. Calcium on prostrate. Gastroesophageal Reflux Disease. Anxiety Reaction. Leukocytosis. Abdominal Pain. Urinary Calculi. Renal Colic. Immunizations. --18:06 Robetra Bowman. ADDITIONAL SURGERIES: Colonoscopy. Lithotripsy. Renal Stone Manipulation. Shoulder Surgery. --18:06 Roberta Bowman. Assessment The patient states feels the same. --18:07 Roberta Bowman. Interventions ID band on patient. --18:07 Roberta Bowman. PHYSICAL ASSESSMENT 18:05/28/17. Ambulatory to room. Patient gowned. GENERAL / NEURO / PSYCH: Oriented X 4. Alert. Appears in no acute distress. EXTREMITIES: Limited ROM present. Capillary refill is less than 2 seconds in the extremities. Extremity pulses are within normal limits. Limping gait. Neuro-vascular status intact to the extremity. Right knee: tenderness. SKIN: Skin intact. Skin is warm and dry. --18:08 Roberta Bowman. NURSING PROGRESS NOTES 18:05/28/17. The plan of care for this patient has been created. Cold pack applied. Extremity elevated. Neuro-vascular extremity check. Reassurance given. Two patient identifiers checked. Call light placed in reach. Side rails up x 1. Bed placed in lowest position. Brakes of bed on. Patient ready for evaluation- chart flagged and ED physician and CUSTOMER TECHNICAL SERVICES MANAGER notified. --18:08 Roberta Bowman. DISPOSITION / DISCHARGE 19:10 05/28/17. Departure time: 19:May 28 2017. Condition at departure: improved. The goals identified in the patient's plan of care were met. No learning barriers present. Discharge instructions provided and reviewed with the patient. Reviewed warnings (Patient verbalized awareness of warning s/sx listed in dc paperwork.). Treatments reviewed. Reviewed referral to a primary care physician for followup. Patient verbalized understanding. Written instructions provided in Portuguese. The patient was discharged by the physician. He was discharged home and unaccompanied at time of discharge. He left the Emergency Department on crutches and via private vehicle. Patient driving. FALL RISK ASSESSMENT: Fall risk assessment completed. No fall risk identified. --19:10 Roberta Bowman 19:09 05/28/17. BP: 148/100. HR: 92. RR: 17. O2 saturation: 97% on room air. Temp: 98.4 F (oral). Pain level now: 07/08. --19:10 Roberta Bowman. Locked/Released at 05/28/2017 19:12 by Roberta Bowman,
--- NOTE | 2017-05-28 19:00 | ED CLINICAL REPORT ---
Clinical Report - Physicians/Mid Levels [facility] [address] [place] [address] 05/28/2017 17:57 Patient: LUIGI LYNN Time Seen: 18:03 May 28 2017. Arrived- By private vehicle. Historian- patient. CPT: ER phys charges level 3 (#[id number]). HISTORY OF PRESENT ILLNESS Chief Complaint: Injury to right knee and Chief Complaint- Fell on knee 1 month ago and then again last night. The injury happened last night. Occurred at home. ( Knee gave out last night.). The patient sustained a direct blow. Fell. Patient is experiencing moderate pain. No other injury. REVIEW OF SYSTEMS The patient complains of pain on weight bearing. No swelling, tingling, weakness, numbness or suspected foreign body. No skin laceration. All systems otherwise negative, except as recorded above. PAST HISTORY See nurses notes. ( Nephrolithiasis. Ureterolithiasis. Tinnitus. Hematuria. Hypertension. Chest Pain of GI Origin. Gastritis. Peptic Ulcer Disease. Contusion. Fall. Flank Pain. Recent Travel. Calcium on prostrate. Gastroesophageal Reflux Disease. Anxiety Reaction. Leukocytosis. Abdominal Pain. Urinary Calculi. Renal Colic. Immunizations. - ADDITIONAL SURGERIES: Colonoscopy. Lithotripsy. Renal Stone Manipulation. Shoulder Surgery.). Medications: Methocarbamol Oral. Hydrocodone-Acetaminophen Oral 7.5 mg, 3x a day. Ibuprofen Oral. TraMADol HCl Oral (Tablet 50 mg) 2 tablets, 2x a day as needed, kidney pain (stones). Allergies: No Known Drug Allergy. SOCIAL HISTORY Heavy tobacco smoker (cigarette)- less than 1 pack per day. No alcohol use or drug use. ADDITIONAL NOTES The nursing notes have been reviewed. PHYSICAL EXAM Vital Signs: 05/28/2017 18:07 BP: 153/97. HR: 97. RR: 17. O2 saturation: 98%. Temp: 98.2 F. Appearance: Alert. Appears to be in pain. Patient in mild distress. Head: Head atraumatic. ENT: Pharynx normal. Neck: Normal inspection. C-spine non-tender. CVS: Normal heart rate and rhythm. Respiratory: No respiratory distress. Abdomen: Nontender. Back: Normal inspection. No tenderness. Skin: Skin intact. Skin warm. Normal skin color. Extremities: Right knee: moderate tenderness located in the medial joint line and medial collateral ligament. Limited ROM secondary to pain (diminished flexion and extension). Neurovascular intact distally. No ligamentous laxity present. No joint effusion. No swelling, laceration, abrasion, ecchymosis or deformity. Extremities otherwise negative. Neuro, Vascular and Tendons: Vascular status intact. Sensation intact. Motor intact. Gait: Gait not tested due to pain. Neuro: Oriented X 3. No motor deficit. No sensory deficit. Reflexes normal. LABS, X-RAYS, AND EKG X-Rays: Right knee negative. PROGRESS AND PROCEDURES Splint Application: Knee immobilizer applied to right lower extremity. Splint applied by tech with direct supervision by me. Reassessed extremity following splint application. Neurovascular intact. Fitted for crutches by the tech. Patient/family counseled. Disposition: Discharged. Condition: stable. CLINICAL IMPRESSION Right knee contusion; sprain of the right medial collateral ligament; tear of the right medial meniscus. INSTRUCTIONS Apply ice for 15-20 minutes three times a day for one days. Use crutches until released. Wear knee immobilizer until released. No weight bearing on right leg until released. Warnings: GENERAL WARNINGS: Return or contact your physician immediately if your condition worsens or changes unexpectedly, if not improving as expected, or if other problems arise. Your Current Medications: CONTINUE TAKING THE FOLLOWING MEDICATIONS: Hydrocodone-Acetaminophen Oral : 7.5 mg 3x a day. Ibuprofen Oral. Methocarbamol Oral. TraMADol HCl Oral : Tablet 50 mg, 2 tablets 2x a day, prn, kidney pain (stones). Follow-up: Follow up with your doctor in one week. Call for an appointment. Understanding of the discharge instructions verbalized by patient. (Electronically signed by Isidoro Ho MD 05/29/2017 16:36)
--- NOTE | 2017-05-28 19:00 | ED ORDER SUMMARY ---
..... Patient: LUIGI LYNN OrderSheet [facility] VisitID: [id number] [place] [address] 37y, M Registration Date/Time: 05/28/2017 ORDER SHEET Weight: 115.6 kg (stated) Allergies: No Known Drug Allergy GENERAL ORDERS: Knee 4V Right Urgent (18:32 05/28/2017 Kishor BARRETO) (Ack 18:41 PWeiler ER Tech1) (19:00 ASchmuck) Knee Immobilizer (18:57 05/28/2017 Kishor BARRETO) (Ack 19:06 PWeiler ER Tech1) (19:09 ASchmuck) Crutches (18:57 05/28/2017 Kishor BARRETO) (Ack 19:06 PWeiler ER Tech1) (19:09 ASchmuck) MEDICATION ORDERS: IV FLUIDS: ORDER SHEET NOTES: [Electronically signed by Roberta Bowman (19:12 05/28/2017)] [Electronically signed by Isidoro Ho MD (16:36 05/29/2017)] [Electronically locked/signed by Roberta Bowman (19:12 05/28/2017)]
--- NOTE | 2017-05-28 19:00 | ED CLINICAL REPORT ---
Clinical Report - Physicians/Mid Levels [facility] [address] [place] [address] 05/28/2017 17:57 Patient: LUIGI LYNN Time Seen: 18:03 May 28 2017. Arrived- By private vehicle. Historian- patient. CPT: ER phys charges level 3 (#[id number]). HISTORY OF PRESENT ILLNESS Chief Complaint: Injury to right knee and Chief Complaint- Fell on knee 1 month ago and then again last night. The injury happened last night. Occurred at home. ( Knee gave out last night.). The patient sustained a direct blow. Fell. Patient is experiencing moderate pain. No other injury. REVIEW OF SYSTEMS The patient complains of pain on weight bearing. No swelling, tingling, weakness, numbness or suspected foreign body. No skin laceration. All systems otherwise negative, except as recorded above. PAST HISTORY See nurses notes. ( Nephrolithiasis. Ureterolithiasis. Tinnitus. Hematuria. Hypertension. Chest Pain of GI Origin. Gastritis. Peptic Ulcer Disease. Contusion. Fall. Flank Pain. Recent Travel. Calcium on prostrate. Gastroesophageal Reflux Disease. Anxiety Reaction. Leukocytosis. Abdominal Pain. Urinary Calculi. Renal Colic. Immunizations. - ADDITIONAL SURGERIES: Colonoscopy. Lithotripsy. Renal Stone Manipulation. Shoulder Surgery.). Medications: Methocarbamol Oral. Hydrocodone-Acetaminophen Oral 7.5 mg, 3x a day. Ibuprofen Oral. TraMADol HCl Oral (Tablet 50 mg) 2 tablets, 2x a day as needed, kidney pain (stones). Allergies: No Known Drug Allergy. SOCIAL HISTORY Heavy tobacco smoker (cigarette)- less than 1 pack per day. No alcohol use or drug use. ADDITIONAL NOTES The nursing notes have been reviewed. PHYSICAL EXAM Vital Signs: 05/28/2017 18:07 BP: 153/97. HR: 97. RR: 17. O2 saturation: 98%. Temp: 98.2 F. Appearance: Alert. Appears to be in pain. Patient in mild distress. Head: Head atraumatic. ENT: Pharynx normal. Neck: Normal inspection. C-spine non-tender. CVS: Normal heart rate and rhythm. Respiratory: No respiratory distress. Abdomen: Nontender. Back: Normal inspection. No tenderness. Skin: Skin intact. Skin warm. Normal skin color. Extremities: Right knee: moderate tenderness located in the medial joint line and medial collateral ligament. Limited ROM secondary to pain (diminished flexion and extension). Neurovascular intact distally. No ligamentous laxity present. No joint effusion. No swelling, laceration, abrasion, ecchymosis or deformity. Extremities otherwise negative. Neuro, Vascular and Tendons: Vascular status intact. Sensation intact. Motor intact. Gait: Gait not tested due to pain. Neuro: Oriented X 3. No motor deficit. No sensory deficit. Reflexes normal. LABS, X-RAYS, AND EKG X-Rays: Right knee negative. PROGRESS AND PROCEDURES Splint Application: Knee immobilizer applied to right lower extremity. Splint applied by tech with direct supervision by me. Reassessed extremity following splint application. Neurovascular intact. Fitted for crutches by the tech. Patient/family counseled. Disposition: Discharged. Condition: stable. CLINICAL IMPRESSION Right knee contusion; sprain of the right medial collateral ligament; tear of the right medial meniscus. INSTRUCTIONS Apply ice for 15-20 minutes three times a day for one days. Use crutches until released. Wear knee immobilizer until released. No weight bearing on right leg until released. Warnings: GENERAL WARNINGS: Return or contact your physician immediately if your condition worsens or changes unexpectedly, if not improving as expected, or if other problems arise. Your Current Medications: CONTINUE TAKING THE FOLLOWING MEDICATIONS: Hydrocodone-Acetaminophen Oral : 7.5 mg 3x a day. Ibuprofen Oral. Methocarbamol Oral. TraMADol HCl Oral : Tablet 50 mg, 2 tablets 2x a day, prn, kidney pain (stones). Follow-up: Follow up with your doctor in one week. Call for an appointment. Understanding of the discharge instructions verbalized by patient. (Electronically signed by Isidoro Ho MD 05/29/2017 16:36)
--- NOTE | 2017-05-29 16:36 | ED MAR SUMMARY ---
..... Medication Administration Record [facility] [address], [place] [id number] Patient: LUIGI LYNN Visit ID: [id number] 37y, M Weight: 115.6 kg Height/Length: 71 in BMI: 35.6 ALLERGIES: No Known Drug Allergy
--- NOTE | 2017-05-29 16:36 | ED MED RECONCILIATION SUMMARY ---
Patient: LUIGI LYNN Medication Reconciliation Report [facility] VisitID: [id number] [address] [place] [address] 37y, M Registration Date/Time: 05/28/2017 Weight: 115.6 kg Height/Length: 71 in. BMI: 35.6 ALLERGIES: No Known Drug Allergy The patient's Home Medications are listed below: CONTINUE TAKING THE FOLLOWING MEDICATIONS: Hydrocodone-Acetaminophen Oral 7.5 mg, 3x a day Ibuprofen Oral Methocarbamol Oral TraMADol HCl Oral (50 mg) 2 tablets, 2x a day, kidney pain (stones) The source(s) of the original Home Medication information: patient The following Medications were given to the patient in the Emergency Department: None. The following Medications were prescribed to the patient: None.
--- NOTE | 2017-05-29 16:36 | ED MAR SUMMARY ---
..... Medication Administration Record [facility] [address], [place] [id number] Patient: LUIGI LYNN Visit ID: [id number] 37y, M Weight: 115.6 kg Height/Length: 71 in BMI: 35.6 ALLERGIES: No Known Drug Allergy
--- NOTE | 2017-05-29 16:36 | ED MED RECONCILIATION SUMMARY ---
Patient: LUIGI LYNN Medication Reconciliation Report [facility] VisitID: [id number] [address] [place] [address] 37y, M Registration Date/Time: 05/28/2017 Weight: 115.6 kg Height/Length: 71 in. BMI: 35.6 ALLERGIES: No Known Drug Allergy The patient's Home Medications are listed below: CONTINUE TAKING THE FOLLOWING MEDICATIONS: Hydrocodone-Acetaminophen Oral 7.5 mg, 3x a day Ibuprofen Oral Methocarbamol Oral TraMADol HCl Oral (50 mg) 2 tablets, 2x a day, kidney pain (stones) The source(s) of the original Home Medication information: patient The following Medications were given to the patient in the Emergency Department: None. The following Medications were prescribed to the patient: None.
--- NOTE | 2017-05-29 16:36 | ED DISCHARGE INSTRUCTIONS ---
Patient: LUIGI LYNN General Instructions [facility] VisitID: [id number] [place] [address] 37y, M Registration Date/Time: 05/28/2017 Right knee contusion; sprain of the right medial collateral ligament; tear of the right medial meniscus. INSTRUCTIONS Apply ice for 15-20 minutes three times a day for one days. Use crutches until released. Wear knee immobilizer until released. No weight bearing on right leg until released. Warnings: GENERAL WARNINGS: Return or contact your physician immediately if your condition worsens or changes unexpectedly, if not improving as expected, or if other problems arise. Your Current Medications: CONTINUE TAKING THE FOLLOWING MEDICATIONS: Hydrocodone-Acetaminophen Oral : 7.5 mg 3x a day. Ibuprofen Oral. Methocarbamol Oral. TraMADol HCl Oral : Tablet 50 mg, 2 tablets 2x a day, prn, kidney pain (stones). Follow-up: Follow up with your doctor in one week. Call for an appointment. Understanding of the discharge instructions verbalized by patient. ADDITIONAL INFORMATION Knee Pain, Possible Torn Meniscus Themeniscusis a tough cartilage pad that cushions the inside of the knee joint. It serves as a shock absorber and spreads the weight of your body evenly across the knee joint. This prevents excess wear and tear to the bones of that joint. The most common causes of meniscal tears are due to injury (especially related to sports) and degenerative disease (as occurs with aging). A meniscus tear commonly occurs during a twisting injury when the knee is bent. This causes pain, swelling, reduced movement of the knee and difficulty walking. There may be popping, clicking, joint locking or inability to completely straighten the knee. Ligaments of the knee may also be injured. Initial diagnosis of a torn meniscus is by physical exam and x-rays. In the case of an acute injury, the knee may be too painful to examine fully. A more accurate exam can be performed after the initial swelling goes down. An MRI (magnetic image scan) may be ordered to make a final diagnosis. Initial treatment of a suspected meniscal injury is with ice and rest and preventing movement of the knee. A splint or Velcro knee immobilizer may be applied to protect the joint. Depending on the severity of the injury, surgery may be required. A cartilage injury may take 4-12 weeks to heal depending on the severity. Home Care: Stay off the injured leg as much as possible until you can walk on it without pain. If you have a lot of pain with walking, crutches or a walker may be prescribed. (These can be rented or purchased at many pharmacies and surgical or orthopedic supply stores). Follow your doctor's advice regarding when to begin bearing weight on that leg. Keep your leg elevated to reduce pain and swelling. When sleeping, place a pillow under the injured leg. When sitting, support the injured leg so it is level with your waist. This is very important during the first 48 hours. Apply an ice pack (ice cubes in a plastic bag, wrapped in a towel) over the injured area for 20 minutes every 1-2 hours the first day. You can place the ice pack directly over the splint. If a Velcro knee immobilizer was applied, you can open this to apply the ice pack directly to the knee. Continue with ice packs 3-4 times a day for the next two days, then as needed for the relief of pain and swelling. You may use acetaminophen (Tylenol) or ibuprofen (Motrin, Advil) to control pain, unless another pain medicine was prescribed. [NOTE: If you have chronic liver or kidney disease or ever had a stomach ulcer, talk with your doctor before using these medicines.] If you were given a splint, keep it completely dry at all times. Bathe with your splint out of the water, protected with a large plastic bag, rubber-banded at the top end. If a fiberglass splint gets wet, you can dry it with a hair-dryer. If you have a Velcro knee immobilizer, you can remove this to bathe, unless told otherwise. Check with your doctor before returning to sports or full work duties. Follow Up with your doctor, or as advised, within 1-2 weeks for another exam. Further testing may be required to assess the extent of your injury. [NOTE: If X-rays were taken, they will be reviewed by a radiologist. You will be notified of any new findings that may affect your care.] Get Prompt Medical Attention if any of the following occur: Toes or foot becomes swollen, cold, blue, numb or tingly Pain or swelling increases over the knee or calf Warmth or redness appears over the knee or calf Shortness of breath or chest pain Fever over 100.4F (38.0C) Knee Sprain, Collateral Ligaments The knee is a hinge joint supported by four strong ligaments. The two ligaments inside the knee (cruciate ligaments) protect this joint from excess forward and backward movement. The ligaments on the outside of the joint (collateral ligaments) prevent skig-fe-pibd motion. The medial collateral ligament (MCL) is located on the inner side of the joint; and the lateral collateral ligament (LCL) is on the outer side of the joint. You have sprained one or both collateral ligaments. A sprain is a tearing of a ligament. The tear may be partial or complete. Diagnosis is made by physical exam. In the case of an acute injury, the knee may be too swollen or painful to examine fully. A more accurate exam can be performed after the initial swelling goes down. Symptoms of a knee sprain include immediate knee swelling, pain, and difficulty walking.Initial treatment includes resting the joint, splinting to reduce movement of the joint, use of ice to reduce swelling and pain. Non-steroidal anti-inflammatory drugs (NSAIDs), such as ibuprofen, may be prescribed. Most sprains will heal in one to four weeks.A severe injury can take three to four months to heal and requires rehabilitation exercises. Surgery is usually not required for sprains involving only the collateral ligaments. Home care The following guidelines will help you care for your injury at home: Stay off the injured leg as much as possible until you can walk on it without pain. If you have a lot of pain while walking, crutches, or a walker may be prescribed. (These can be rented or purchased at many pharmacies and surgical or orthopedic supply stores.) Follow your doctor's advice regarding when to begin bearing weight on that leg. If you were given a lyqh-stf-ofoe closure knee brace, you can remove this to bathe, but leave it in place when walking, sitting, or lying down (unless told otherwise). Apply an ice pack (ice cubes in a plastic bag, wrapped in a towel) over the injured area for 20 minutes every 12 hours the first day. If a imfd-kvq-yxlr closure knee brace was applied, you can open this to apply the ice pack directly to the knee. Continue with ice packs 34 times a day for the next two days, then as needed for the relief of pain and swelling. You may use acetaminophen or ibuprofen to control pain, unless another pain medicine was prescribed. If you have chronic liver or kidney disease or ever had a stomach ulcer or GI bleeding, talk with your doctor before using these medicines. Follow-up care Follow up with the referral doctor, or as advised by our staff. Any X-rays you had today dont show any broken bones, breaks, or fractures. Sometimes fractures dont show up on the first X-ray. Bruises and sprains can sometimes hurt as much as a fracture. These injuries can take time to heal completely. If your symptoms dont improve or they get worse, talk with your doctor. You may need a repeat X-ray. When to seek medical care Get prompt medical attention if any of the following occur: Pain or swelling worsens Shortness of breath or chest pain Swelling or redness or pain of the calf or thigh Crutch Walking Crutch Adjustment Make sure the crutches you use are adjusted to fit you. When you stand, there should be room to fit 2-3 fingers between the top of the crutch and your armpit. Your elbow should be slightly bent when holding the hand powerhouse electrician. Crutch Walking: Place the crutches forward 12" in front of and 6" to the side of your feet. Lean your weight forward as you push down on the handgrips. Your weight should be on your hands and yourstrong leg, not your armpits . Let your body swing through, landing on the strong leg. Advance the crutches forward again. The crutch and the injured leg should move together. Going Up Steps: ("Up with the good") With both crutches on the same step as your feet, push down on the handgrips. Balancing with very light pressure on the weak leg, let your hands support your weight as you raise your strong leg onto the next higher step. Transfer all your weight to your strong leg (still bent) as you move the crutches up to the next step alongside the strong leg. With your weight evenly balanced on the two crutches and your strong leg, straighten your strong knee as you raise the weak leg up to the next step. Going Down Steps: ("Down with the bad") With both crutches on the same step as your feet, push down on the handgrips. With your weight evenly balanced on the two crutches and your strong leg, bend your strong knee as you lower the weak leg down to the next step. Let your strong leg support you (still bent) as you move the crutches down alongside the weak leg. Transfer your weight to your hands, balancing with very light pressure on the weak leg as you lower your strong leg alongside your weak leg. Knee Immobilizer A KNEE IMMOBILIZER is used to provide support and limit movement of the knee. This will make you more comfortable as your injury heals. Home Use: 1) Unless told otherwise, the knee brace should be worn whenever you are out of bed. You may wear it in bed while asleep for the first few nights or until the pain starts to go away. Otherwise, remove the brace at night to avoid muscle stiffness from lack of joint movement. 2) You can open the velcro brace to dress, bathe and apply ice packs as directed. Get Prompt Medical Attention if any of the following occur: -- Worsening pain in the knee -- Weakness or numbness or tingling in the foot -- Increased swelling, redness or warmth of the knee joint You have been given the following additional information: Knee Pain, Meniscus Injury (Possible) Knee Sprain: Collateral Ligaments Crutch Walking Knee Immobilizer No weight bearing on right leg until released. (Electronically signed by Isidoro Ho MD 05/29/2017 16:36)
== END 2017-05-28 19:10 | disposition home or self-care (01) ==
LOC: ED SRH 17:56
DX: S83.411A Sprain of medial collateral ligament of right knee, initial encounter (principal); S83.241A Other tear of medial meniscus, current injury, right knee, initial encounter; W19.XXXA Unspecified fall, initial encounter; Y93.9 Activity, unspecified; Y92.9 Unspecified place or not applicable; Y99.9 Unspecified external cause status; F17.210 Nicotine dependence, cigarettes, uncomplicated; I10 Essential (primary) hypertension; K21.9 Gastro-esophageal reflux disease without esophagitis

== ENCOUNTER 2017-05-31 14:58 | Outpatient (CLI) | payer BC ==
--- NOTE | 2017-05-31 16:52 | DIAGNOSTIC IMAGING REPORT ---
PROCEDURE: MR LOWER EXT JOINT WO CONT-RT INDICATION: Right knee instability after fall. TECHNIQUE: PD and FAT-SAT PD sagittal and coronal images. FAT-SAT PD axial images. High-resolution T2 sagittal images of the cruciate ligaments. (Total of 6 sequences). COMPARISON: There has made radiographs of the right knee on 05/28/2017. FINDINGS: There is intrameniscal degeneration of the posterior horn of the medial meniscus, but no evidence of surface tear. Medial collateral ligament is normal. Lateral meniscus and lateral collateral ligament are normal. Cruciate ligaments are normal. Quadriceps and patellar tendons are normal. Osseous structures and joint spaces are normal. No evidence of fracture. No evidence of effusion. IMPRESSION: 1. Intrameniscal degeneration of the posterior medial meniscus. However, there is no evidence of surface tear. 2. Otherwise negative MRI of the right knee.
== END 2017-05-31 23:00 ==
LOC: MRI SRH 14:58
DX: M23.321 Other meniscus derangements, posterior horn of medial meniscus, right knee (principal)